=== PATIENT | male | born 1930 | race African-American/Black ===

== ENCOUNTER 2018-09-12 14:07 | Inpatient (IN) | payer OTHER ==
[~2018-09-12] VITALS: Ht 170.2 cm; Wt 98.1 kg
[~2018-09-12 14:07] MED LIST: ACET325T9 PO; ALBU1.25 NEB; ALBU2.5V14 IH; ALBU2.5V5 NEB; AMOX1TAB10 PO; ASPI-482 PO; ASPI325T8 PO; ATOR10TA60 PO; ATOR40TA PO; CARB15DR3 EACHEYE; CHOL10003 PO; CIPR500T94 PO; CLOT12CR2 TP; DORZ10DR21 OP; ESCITALOPRAM OX10 MG PO; ESOM40CA PO; FENO145T PO; FERR325T14 PO; FLUT16SP2 NS; FURO20TA3 PO; GABA300C18 PO; HYDR-209 PO; HYDR-2145 PO; HYDR-2679 PO; HYDR-2761 PO; INSU100I13 SQ; INSU100I17 SQ; INSU100V8 SQ; ISOS60TA PO; LEVE250T30 PO; LISI-338 PO; LORA10CA PO; LORA10TA68 PO; MAGN2400 PO; MEMA10TA PO; METO-239 PO; METO100T7 PO; MONT10TA9 PO; MULT-612 PO; MV-M1TAB8 PO; POLY17PO29 PO; POTA8TAB6 PO; PROM118S5 PO; PROM6.257 PO; PYRI100T PO; RANI150T2 PO; RANITIDINE; REPA1TAB PO; REPA1TAB6 PO; SIMV40TA3 PO; SODI30SP NS; SOLI5TAB2 PO; TAMS0.4C2 PO; TAMS0.4C97 PO; TRAM50TA PO; TRAV5DRO EACHEYE; TRAV5DRO OP; VENTOLIN HFA INH; VENTOLIN HFA18 GM INH; VITA1CAP PO
[2018-09-12 15:29] LABS: BASO % 1 % (0-3); EOS % 0 % (0-3); HEMATOCRIT 29.7 % (39.0-53.0); HEMOGLOBIN 9.1 g/dL (13.0-17.5); LYMPH # 1.2 x10^3/uL (1.0-4.8); LYMPH % 13 % (24-48); MEAN CORPUSCULAR HEMOGLOBIN 23 pg (25-35); MEAN CORPUSCULAR HGB CONC 31 g/dL (31-37); MEAN CORPUSCULAR VOLUME 76 fL (79-100); MONO % 11 % (0-9); NEUT % 75 % (31-73); PLATELET COUNT 249 x10^3/uL (140-400); RED BLOOD COUNT 3.93 x10^6/uL (4.30-5.70); WHITE BLOOD COUNT 9.3 x10^3/uL (4.0-11.0)
--- NOTE | 2018-09-12 15:56 | RAD ---
PQRS Compliance statement: One or more of the following individualized dose reduction techniques were utilized for this examination: 1. Automated exposure control. 2. Adjustment of the mA and/or kV according to patient size. 3. Use of iterative reconstruction technique. Indication:AMS FALL 1 WK AGO PREV SENT ER EXT 4180 TECHNIQUE: CT head without IV contrast COMPARISON:08/13/2018 FINDINGS: No pathologic intra-axial or extra-axial fluid collection. Mild diffuse cerebral atrophy with ex vacuo dilation of the ventricles. The basal cisterns are within normal limits. Redemonstrated is a extra-axial mass in the left high convexity approximately measuring 4.0 x 2.9 cm with internal calcifications also evaluated with MRI from 09/02/2014 most likely a meningioma. No acute intracranial bleed. Confluent low-attenuation is seen in the periventricular and deep white matter. No focal loss of ramos-white differentiation. The orbits are within normal limits. No large scalp hematoma. No suspicious calvarial lesion or acute calvarial fractures. Complete opacification of the right sphenoid sinus. Rest of the paranasal sinuses and mastoid air cells are clear. Chronic fracture of the left zygomatic arch and lateral wall of the left orbit. IMPRESSION: 1. No acute intracranial bleed. 2. Left cerebral high convexity extra-axial mass also seen on the previous studies compatible with meningioma. 3. Moderate White matter changes most likely secondary to chronic microvascular ischemic disease. If concern for acute ischemic stroke is high, please consider MRI brain. 4. Chronic fractures of the lateral wall of the left orbit and zygomatic arch. Electronically signed by: Jerman Obrien DO (09/12/2018 3:53 PM) [id number]
--- NOTE | 2018-09-12 15:56 | RAD ---
Portable chest, 09/12/2018: HISTORY: Altered mental status Comparison is made to a study from 08/19/2018. The heart size and pulmonary vascularity are normal. There is mild tortuosity of the thoracic aorta. No pulmonary infiltrate is seen. There is no evidence of pleural fluid. IMPRESSION: No acute cardiopulmonary abnormality is detected. Electronically signed by: Benito Kim MD (09/12/2018 3:53 PM) [facility]
--- NOTE | 2018-09-12 16:01 | PHYS DOC ---
Past Medical History Past Medical History: Anemia, Asthma, CHF, Diabetes-Type I, GERD, Glaucoma, High Cholesterol, Heart Disease, Hypertension, Prostatitis, Seizure, Other Additional Past Medical Histor: back pain, edema, DDD, neuropathy, headache, hearing loss, seasonal allergi Past Surgical History: Other Additional Past Surgical Histo: unknown Alcohol Use: None Drug Use: None Adult General Chief Complaint Chief Complaint: OTHER COMPLAINTS HPI HPI Patient is a 87 year old male who presents with persistent by Dr. Torres due to home health nurse calling and stating that the patient is more disoriented and weak. Patient comes from home. He was diagnosed with a urinary tract infection and was given Bactrim on Saturday. The patient examined to see if the patient's urinary tract infection was clearing or worsening. Dr. Torres. Had called and talked to JOSE Tracy stating to also consult infectious disease on the patient. Dr Torres is wanting the patient to be admitted for UTI and AMS. Review of Systems Review of Systems Constitutional: Denies fever or chills [] Eyes: Denies change in visual acuity, redness, or eye pain [] HENT: Denies nasal congestion or sore throat [] Respiratory: Denies cough or shortness of breath [] Cardiovascular: No additional information not addressed in HPI [] GI: Denies abdominal pain, nausea, vomiting, bloody stools or diarrhea [] :Urinary frequency. Denies dysuria or hematuria [] Musculoskeletal: Denies back pain or joint pain [] Integument: Denies rash or skin lesions [] Neurologic: Denies headache, focal weakness or sensory changes [] All other systems were reviewed and found to be within normal limits, except as documented in this note. Current Medications Current Medications Current Medications Medications (Trade) Dose Ordered Sig/[facility] Start Time Stop Time Status Last Admin Dose Admin Calcium Gluconate (Calcium Gluconate) 1,000 mg 1X ONCE 09/12/18 17:30 09/12/18 17:31 DC Dextrose (Dextrose 50%-Water Syringe) 25 gm 1X ONCE 09/12/18 17:30 09/12/18 17:31 DC Insulin Human Regular (HumuLIN R VIAL) 10 unit 1X ONCE 09/12/18 17:30 09/12/18 17:31 DC Allergies Allergies Allergies Coded Allergies Type Severity Reaction Last Updated Verified No Known Drug Allergies 8/31/15 No Physical Exam Physical Exam Constitutional: Well developed, well nourished, no acute distress, non-toxic appearance. [] HENT: Normocephalic, atraumatic, bilateral external ears normal, oropharynx moist, no oral exudates, nose normal. [] Eyes: PERRLA, EOMI, conjunctiva normal, no discharge. [] Neck: Normal range of motion, no tenderness, supple, no stridor. [] Cardiovascular:Heart rate regular rhythm, no murmur [] Lungs & Thorax: Bilateral breath sounds clear to auscultation [] Abdomen: Bowel sounds normal, soft, no tenderness, no masses, no pulsatile masses. [] Skin: Warm, dry, no erythema, no rash. [] Back: No tenderness, no CVA tenderness. [] Extremities: No tenderness, no cyanosis, no clubbing, ROM intact, no edema. [] Neurologic: Alert and oriented X 2, normal motor function, normal sensory function, no focal deficits noted. [] Psychologic: Affect normal, judgement normal, mood normal. [] Current Patient Data Vital Signs Vital Signs Date Time Temp Pulse Resp B/P (MAP) Pulse Ox O2 Delivery O2 Flow Rate FiO2 09/12/18 14:55 79 18 137/69 (91) 96 Room Air 09/12/18 14:07 98.1 98.1 Lab Values Laboratory Tests Test 09/12/18 14:45 09/12/18 16:09 09/12/18 16:12 09/12/18 16:26 White Blood Count 9.3 x10^3/uL (4.0-11.0) Red Blood Count 3.93 x10^6/uL (4.30-5.70) L Hemoglobin 9.1 g/dL (13.0-17.5) L Hematocrit 29.7 % (39.0-53.0) L Mean Corpuscular Volume 76 fL (79-100) L Mean Corpuscular Hemoglobin 23 pg (25-35) L Mean Corpuscular Hemoglobin Concent 31 g/dL (31-37) Red Cell Distribution Width 15.0 % (11.5-14.5) H Platelet Count 249 x10^3/uL (140-400) Neutrophils (%) (Auto) 75 % (31-73) H Lymphocytes (%) (Auto) 13 % (24-48) L Monocytes (%) (Auto) 11 % (0-9) H Eosinophils (%) (Auto) 0 % (0-3) Basophils (%) (Auto) 1 % (0-3) Neutrophils # (Auto) 7.0 x10^3uL (1.8-7.7) Lymphocytes # (Auto) 1.2 x10^3/uL (1.0-4.8) Monocytes # (Auto) 1.0 x10^3/uL (0.0-1.1) Eosinophils # (Auto) 0.0 x10^3/uL (0.0-0.7) Basophils # (Auto) 0.0 x10^3/uL (0.0-0.2) Troponin I Quantitative < 0.017 ng/mL (0.000-0.055) Urine Collection Type Unknown Urine Color Yellow Urine Clarity Clear Urine pH 7.5 Urine Specific [place] 1.010 Urine Protein Negative mg/dL (NEG-TRACE) Urine Glucose (UA) Negative mg/dL (NEG) Urine Ketones (Stick) Negative mg/dL (NEG) Urine Blood Moderate (NEG) Urine Nitrite Negative (NEG) Urine Bilirubin Negative (NEG) Urine Urobilinogen Dipstick 0.2 mg/dL (0.2 mg/dL) Urine Leukocyte Esterase Negative (NEG) Urine RBC 20-40 /HPF (0-2) Urine WBC 1-4 /HPF (0-4) Urine Bacteria 0 /HPF (0-FEW) Lactic Acid Level 1.4 mmol/L (0.4-2.0) Sodium Level 140 mmol/L (136-145) Potassium Level 5.4 mmol/L (3.5-5.1) H Chloride Level 105 mmol/L (98-107) Carbon Dioxide Level 28 mmol/L (21-32) Anion Gap 7 (6-14) Blood Urea Nitrogen 37 mg/dL (8-26) H Creatinine 2.7 mg/dL (0.7-1.3) H Estimated GFR (Cockcroft-Gault) 27.1 BUN/Creatinine Ratio 14 (6-20) Glucose Level 92 mg/dL (70-99) Calcium Level 9.0 mg/dL (8.5-10.1) Total Bilirubin 0.3 mg/dL (0.2-1.0) Aspartate Amino Transferase (AST) 58 U/L (15-37) H Alanine Aminotransferase (ALT) 32 U/L (16-63) Alkaline Phosphatase 76 U/L (46-116) Total Protein 6.8 g/dL (6.4-8.2) Albumin 3.0 g/dL (3.4-5.0) L Albumin/Globulin Ratio 0.8 (1.0-1.7) L Laboratory Tests 09/12/18 14:45 Laboratory Tests 09/12/18 16:26 EKG EKG Sinus rhythm and no STEMI.[] Interpretation Time: [address] Singh Radiology/Procedures Radiology/Procedures Chest xray, CT head Impressions: [address] [id number] IMAGING REPORT Signed PATIENT: ANDREZ HUMPHREY ACCOUNT: [id number] : 1930 LOCATION: ER AGE: 87 SEX: M EXAM STATUS: REG ER ORD. PHYSICIAN: SHANIA TYLER APRN REASON: AMS PROCEDURE: PORTABLE CHEST 1V Portable chest, 09/12/2018: HISTORY: Altered mental status Comparison is made to a study from 08/19/2018. The heart size and pulmonary vascularity are normal. There is mild tortuosity of the thoracic aorta. No pulmonary infiltrate is seen. There is no evidence of pleural fluid. IMPRESSION: No acute cardiopulmonary abnormality is detected. Electronically signed by: Benito Kim MD (09/12/2018 3:53 PM) [facility] DICTATED and SIGNED BY: BENITO KIM MD DATE: 09/12/[address] [address] IMAGING REPORT Signed PATIENT: ANDREZ HUMPHREY ACCOUNT: [id number] : 1930 LOCATION: ER AGE: 87 SEX: M EXAM STATUS: REG ER ORD. PHYSICIAN: SHANIA TYLER APRN REASON: AMS PROCEDURE: CT HEAD WO CONTRAST PQRS Compliance statement: One or more of the following individualized dose reduction techniques were utilized for this examination: 1. Automated exposure control. 2. Adjustment of the mA and/or kV according to patient size. 3. Use of iterative reconstruction technique. Indication:AMS FALL 1 WK AGO PREV SENT ER EXT 4180 TECHNIQUE: CT head without IV contrast COMPARISON:08/13/2018 FINDINGS: No pathologic intra-axial or extra-axial fluid collection. Mild diffuse cerebral atrophy with ex vacuo dilation of the ventricles. The basal cisterns are within normal limits. Redemonstrated is a extra-axial mass in the left high convexity approximately measuring 4.0 x 2.9 cm with internal calcifications also evaluated with MRI from 09/02/2014 most likely a meningioma. No acute intracranial bleed. Confluent low-attenuation is seen in the periventricular and deep white matter. No focal loss of ramos-white differentiation. The orbits are within normal limits. No large scalp hematoma. No suspicious calvarial lesion or acute calvarial fractures. Complete opacification of the right sphenoid sinus. Rest of the paranasal sinuses and mastoid air cells are clear. Chronic fracture of the left zygomatic arch and lateral wall of the left orbit. IMPRESSION: 1. No acute intracranial bleed. 2. Left cerebral high convexity extra-axial mass also seen on the previous studies compatible with meningioma. 3. Moderate White matter changes most likely secondary to chronic microvascular ischemic disease. If concern for acute ischemic stroke is high, please consider MRI brain. 4. Chronic fractures of the lateral wall of the left orbit and zygomatic arch. Electronically signed by: Jerman Obrien DO (09/12/2018 3:53 PM) [id number] DICTATED and SIGNED BY: JERMAN OBRIEN DO DATE: 09/12/18 1547 Course & Med Decision Making Course & Med Decision Making Patient is a 87 year old male who presents with persistent by Dr. Torres due to home health nurse calling and stating that the patient is more disoriented and weak. Patient comes from home. He was diagnosed with a urinary tract infection and was given Bactrim on Saturday. The patient examined to see if the patient's urinary tract infection was clearing or worsening. Dr. Torres. Had called and talked to JOSE Tracy stating to also consult infectious disease on the patient. Dr Torres is wanting the patient to be admitted for UTI and AMS. Patient is alert to self and place. Patient does not know what year it is. I do not know a baseline mental status for the patient. Patient states he is unsure of why he is in the hospital. Patient states he has frequent urination but denies pain with urination. Patient denies any pain and has no complaints. Lungs are clear to auscultation all lobes. Abdomen is soft and nontender. Vital signs are within normal limits and he is afebrile. Skin pink warm and dry. Mucous membranes are moist. Patient speaks in full clear sentences. CT head and Chest xray show chronic findings and no acute findings. Patient was straight catheter and 1500ml of Cristine colored urine was drained. Lam catheter is kept in placed and yellow urine has now began draining. Potassium 5.4, Creatinine 2.7, BUN 37. Patient is given Calcium gluconate, albuterol, insulin and dextrose to treat hyperkalemia. I have spoken to Dr Obrien who is partition notcher for Dr Torres for admission. She states to order a BMP for the morning and order Rocephin 1G daily. Dragon Disclaimer Dragon Disclaimer This electronic medical record was generated, in whole or in part, using a voice recognition dictation system. Departure Departure Impression: Primary Impression: Urinary tract infection Additional Impressions: Urinary retention Hyperkalemia Disposition: ADMITTED INPATIENT Admitting Physician: Agustín Obrien Condition: STABLE Referrals: UNKNOWN PCP NAME (PCP) Problem Qualifiers Primary Impression: Urinary tract infection Urinary tract infection type: site unspecified Hematuria presence: without hematuria Qualified Codes: N39.0 - Urinary tract infection, site not specified SHANIA TYLER APRN Sep 12, 2018 16:01
[2018-09-12 16:24] LABS: BILIRUBIN,URINE NEGATIVE (NEG); CLARITY,URINE CLEAR; COLOR,URINE YELLOW; NITRITE,URINE NEGATIVE (NEG); PH,URINE 7.5; PROTEIN,URINE NEGATIVE (NEG-TRACE); UROBILINOGEN,URINE 0.2 mg/dL (0.2 mg/dL)
[2018-09-12 16:27] LABS: BACTERIA,URINE 0 /HPF (0-FEW); RBC,URINE 20-40 /HPF (0-2)
[2018-09-12 16:45] LABS: CREATININE 2.7 mg/dL (0.7-1.3); GFR 27.1; POTASSIUM 5.4 mmol/L (3.5-5.1)
[2018-09-12 16:50] LABS: ALBUMIN/GLOBULIN RATIO 0.8 (1.0-1.7); TOTAL BILIRUBIN 0.3 mg/dL (0.2-1.0); TOTAL PROTEIN 6.8 g/dL (6.4-8.2)
[2018-09-12] MEDS ORDERED: INSULIN REGULAR 100 UNIT/ML 3ML VIAL. IV ONE (17:30)
[2018-09-12] MEDS ORDERED: CALCIUM GLUCONATE 1,000 MG/10 ML VIAL. IVP ONE (17:30)
[2018-09-12] MEDS ORDERED: DEXTROSE 50% 25 GM / 50ML DISP.SYRIN. IV ONE (17:30)
[2018-09-12] MEDS ORDERED: ALBUTEROL SULFATE 2.5 MG/3 ML NEBU. CONT NEB ONE (18:00)
[2018-09-12] MEDS ORDERED: ACETAMINOPHEN 325 MG TABLET. PO PRN ×2 (18:00→23:45)
[2018-09-12] MEDS ORDERED: ONDANSETRON PF 4 MG/2 ML VIAL. IV PRN (18:00)
[2018-09-12] MEDS: cefTRIAXone IV Push 1 GM VIAL. IVP SCH (18:48)
[2018-09-12 19:00] VITALS: BP 116/44
--- NOTE | 2018-09-12 20:30 | NUR ---
RN paged MD in regards to patients glucose of 45 and RN gave a one time dose of dextrose. Orders were received and implemented at that time. RN will continue to monitor.
[2018-09-12] MEDS ORDERED: DEXTROSE 50% 25 GM / 50ML DISP.SYRIN. IV STA (20:48)
[2018-09-12 23:00] VITALS: BP 120/55
[2018-09-12] MEDS ORDERED: traMADol 50 MG TABLET PO PRN (23:45)
[2018-09-13 03:00] VITALS: BP 114/58
[2018-09-13 05:21] LABS: BASO % 0 % (0-3); EOS # 0.1 x10^3/uL (0.0-0.7); EOS % 2 % (0-3); HEMATOCRIT 27.6 % (39.0-53.0); HEMOGLOBIN 8.3 g/dL (13.0-17.5); LYMPH # 2.1 x10^3/uL (1.0-4.8); LYMPH % 25 % (24-48); MEAN CORPUSCULAR HEMOGLOBIN 22 pg (25-35); MEAN CORPUSCULAR HGB CONC 30 g/dL (31-37); MEAN CORPUSCULAR VOLUME 75 fL (79-100); MONO # 1.1 x10^3/uL (0.0-1.1); MONO % 13 % (0-9); NEUT # 4.9 x10^3uL (1.8-7.7); NEUT % 60 % (31-73); PLATELET COUNT 204 x10^3/uL (140-400); WHITE BLOOD COUNT 8.3 x10^3/uL (4.0-11.0)
[2018-09-13 06:17] LABS: ALBUMIN 2.7 g/dL (3.4-5.0); ALBUMIN/GLOBULIN RATIO 0.8 (1.0-1.7); CALCIUM 9.3 mg/dL (8.5-10.1); CREATININE 2.7 mg/dL (0.7-1.3); GFR 27.1; POTASSIUM 4.9 mmol/L (3.5-5.1); TOTAL BILIRUBIN 0.3 mg/dL (0.2-1.0); TOTAL PROTEIN 6.3 g/dL (6.4-8.2)
[2018-09-13 07:00] VITALS: BP 121/74
[2018-09-13 07:00] LABS: CREATININE 2.6 mg/dL (0.7-1.3); GFR 28.3; POTASSIUM 5.1 mmol/L (3.5-5.1)
[2018-09-13] MEDS ORDERED: DEXTROSE 50% 25 GM / 50ML DISP.SYRIN. IV ONE ×2 (07:56→08:00)
--- NOTE | 2018-09-13 08:01 | NUR ---
Patient blood sugar 48, D50 1 amp IVP per protocol. Patient alert and states "feeling good", skin warm and dry, will recheck blood sugar per protocol.
[2018-09-13 08:09] LABS: ANISOCYTOSIS PRESENT; HYPOCHROMIA PRESENT; OVALOCYTES PRESENT; PLT ESTIMATE ADEQUATE (ADEQUATE); POIKILOCYTOSIS PRESENT; SCHISTOCYTES FEW
--- NOTE | 2018-09-13 08:21 | NUR ---
Patient eating breakfast, blood sugar increased to 163 5 minutes after D50 1 amp IV. Continue cares and monitor.
[2018-09-13] MEDS ORDERED: FLUTICASONE 50MCG/NASAL SPRAY 16GM BOTTLE. NS SCH (09:00)
[2018-09-13] MEDS ORDERED: POTASSIUM CHLORIDE 10 MEQ TABLET.ER. PO SCH ×2 (09:00)
[2018-09-13] MEDS ORDERED: COQ10 PO SCH (09:00)
[2018-09-13] MEDS ORDERED: MV MN PO SCH (09:00)
[2018-09-13] MEDS ORDERED: LISINOPRIL 5 MG TABLET. PO SCH (09:00)
[2018-09-13] MEDS ORDERED: METOPROLOL SUCC 24HR ER 50 MG TAB.ER.24H. PO SCH (09:00)
[2018-09-13] MEDS ORDERED: LUTEIN PO SCH (09:00)
[2018-09-13] MEDS ORDERED: AMOXICILLIN/K CLAV 500/125MG TABLET. PO SCH (09:00)
[2018-09-13] MEDS ORDERED: LYCOPENE PO SCH (09:00)
[2018-09-13] MEDS ORDERED: [UNRECOGNIZED DRUG - OTHER] PO SCH (09:00)
[2018-09-13] MEDS ORDERED: FUROSEMIDE 20 MG TABLET PO SCH (09:00)
[2018-09-13] MEDS: ALBUTEROL SULFATE 2.5 MG/3 ML NEBU. NEB SCH ×4 (09:05→20:17)
[2018-09-13] MEDS: POLYETHYLENE GLYCOL 3350 17 GM PACKET. PO SCH (09:55)
[2018-09-13] MEDS: MEMANTINE 5 MG TABLET. PO SCH ×2 (09:55→21:07)
[2018-09-13] MEDS: levETIRAcetam 250 MG TABLET PO SCH ×2 (09:55→21:07)
[2018-09-13] MEDS: POLYVINYL ALCOHOL 1.4% OPHTH SOLUTION 15ML BOTTLE. OU SCH ×4 (09:55→21:06)
[2018-09-13] MEDS: LACTOBACILLUS RHAMNOSUS GG 1 CAPSULE. PO SCH ×2 (09:56→21:07)
[2018-09-13] MEDS: ASPIRIN ENTERIC COATED 81 MG TABLET.DR. PO SCH (09:56)
[2018-09-13] MEDS: GABAPENTIN 300 MG CAPSULE. PO SCH (09:56)
[2018-09-13] MEDS: CHOLECALCIFEROL (VITAMIN D3) 1,000 UNIT TABLET PO SCH (09:56)
[2018-09-13] MEDS: FAMOTIDINE 20 MG TABLET. PO SCH (09:56)
[2018-09-13] MEDS: MULTIVITAMIN with MINERAL TABLET. PO SCH (09:56)
[2018-09-13] MEDS: VITAMIN B COMPLEX TABLET. PO SCH (09:56)
[2018-09-13] MEDS: ISOSORBIDE MONONITRATE ER 30 MG TAB.ER.24H PO SCH (09:57)
[2018-09-13] MEDS: cefTRIAXone IV Push 1 GM VIAL. IVP SCH (09:58)
[2018-09-13] MEDS: FLUTICASONE 50MCG/NASAL SPRAY 16GM BOTTLE. NS SCH ×2 (09:58→21:06)
[2018-09-13] MEDS: METOPROLOL SUCC 24HR ER 25 MG TAB.ER.24H. PO SCH (09:59)
[2018-09-13] MEDS: CITALOPRAM 20 MG TABLET. PO SCH (09:59)
[2018-09-13] MEDS: IV DEXTROSE 5% - 0.9 % NACL 1,000 ML IV SCH ×2 (10:55→21:08)
[2018-09-13 11:00] VITALS: BP 136/77
--- NOTE | 2018-09-13 11:36 | PDOC ---
Provider Note Provider Note Patient seen. History and Physical dictated. See dictation#[id number] CELIA RIOS MD Sep 13, 2018 11:36
--- NOTE | 2018-09-13 11:41 | PDOC2 ---
CONSULT Date of Consult Date of Consult DATE: 09/13/18 TIME: 11:34 Reason for Consult Reason for Consult: MARVIN Referring Physician Referring Physician: BLANCA Identification/Chief Complaint Chief Complaint CONFUSION AND ABNORMAL LABS Source Source: Chart review, Patient History of Present Illness Reason for Visit: THIS IS AN 87 YR OLD WITH ABNORMAL LABS AND CONFUSION. PT NOTED TO HAVE RECENT UTI FOR WHICH HE WAS TREATED WITH BACTRIM. ON ADMIT CR OF 2.6. HE HAS BASELINE CKD STAGE 3 WITH CR OF 1.6 DUE TO DM II AND HTN. HE WAS GIVEN INSULIN FOR HIS HIGH K AND NOW HAS SOME HYPOGLYCEMIA. ALSO HAS BPH AND URINARY RETENTION FOR WHICH HE HAS A TRIMBLE CATHETER. HEMODYNAMICALLY STABLE Past Medical History Past Medical History Anemia, Asthma, CHF, Diabetes-Type I, GERD, Glaucoma, High Cholesterol, Heart Disease, Hypertension, Prostatitis, Seizure,back pain, edema, DDD, neuropathy, headache, hearing loss, seasonal allergi Cardiovascular: HTN Renal/: Chronic renal insuff Endocrine: Diabetes Current Problem List Problem List Problems Medical Problems: (1) Hyperkalemia Status: Acute (2) Urinary retention Status: Acute (3) Urinary tract infection Status: Acute Current Medications Current Medications Current Medications Calcium Gluconate (Calcium Gluconate) 1,000 mg 1X ONCE IVP Last administered on 09/12/18at 17:48; Start 09/12/18 at 17:30; Stop 09/12/18 at 17:31; Status DC Dextrose (Dextrose 50%-Water Syringe) 25 gm 1X ONCE IV Last administered on at 17:48; Start 09/12/18 at 17:30; Stop 09/12/18 at 17:31; Status DC Insulin Human Regular (HumuLIN R VIAL) 10 unit 1X ONCE IV Last administered on 09/12/18at 17:50; Start 09/12/18 at 17:30; Stop 09/12/18 at 17:31; Status DC Albuterol Sulfate (Ventolin Neb Soln) 10 mg 1X ONCE CONT NEB Last administered on 09/12/18at 17:52; Start 09/12/18 at 18:00; Stop 09/12/18 at 18:01 ; Status DC Ondansetron HCl (Zofran) 4 mg PRN Q8HRS PRN IV NAUSEA/VOMITING; Start 09/12/18 at 18:00; Stop 09/13/18 at 17:59 Acetaminophen (Tylenol) 650 mg PRN Q4HRS PRN PO FEVER; Start 09/12/18 at 18:00 ; Stop 09/12/18 at 23:42; Status DC Ceftriaxone Sodium (Rocephin) 1 gm DAILY IVP Last administered on 09/13/18at 09: 58; Start 09/12/18 at 18:30 Dextrose (Dextrose 50%-Water Syringe) 25 gm 1X STAT IV Last administered on at 20:52; Start 09/12/18 at 20:48; Stop 09/12/18 at 20:51; Status DC Acetaminophen (Tylenol) 650 mg PRN Q6HRS PRN PO MILD PAIN / TEMP; Start at 23:45 Albuterol Sulfate (Ventolin Neb Soln) 2.5 mg RTQID NEB Last administered on at 09:05; Start 09/13/18 at 08:00 Amoxicillin/ Clavulanate Potassium (Augmentin 500/ 125mg) 1 tab BID PO ; Start 09/13/18 at 09:00; Stop 09/13/18 at 09:00; Status DC Aspirin (Ecotrin) 81 mg DAILY PO Last administered on 09/13/18at 09:56; Start at 09:00 Atorvastatin Calcium (Lipitor) 10 mg HS PO ; Start 09/13/18 at 21:00 Vitamin D (Vitamin D3) 500 unit DAILY PO Last administered on 09/13/18at 09:56; Start 09/13/18 at 09:00 Furosemide (Lasix) 20 mg DAILY PO Last administered on 09/13/18 09:56; Start 09/13/18 at 09:00 Gabapentin (Neurontin) 300 mg DAILY PO Last administered on 09/13/18at 09:56; Start 09/13/18 at 09:00 Metoprolol Succinate (Toprol Xl) 50 mg DAILY PO ; Start 09/13/18 at 09:00; Stop 09/13/18 at 09:00; Status DC Multivitamins (Thera M Plus) 1 tab DAILY PO Last administered on 09/13/18at 09: 56; Start 09/13/18 at 09:00 Tamsulosin HCl (Flomax) 0.4 mg HS PO ; Start 09/13/18 at 21:00 Tramadol HCl (Ultram) 50 mg PRN QID PRN PO MODERATE-SEVERE PAIN; Start at 23:45; Stop 09/13/18 at 00:40; Status DC Artificial Tears (Artificial Tears) 1 drop QID OU Last administered on 09:55; Start 09/13/18 at 09:00 Citalopram Hydrobromide (CeleXA) 20 mg DAILY PO Last administered on 09/13/18 09:59; Start 09/13/18 at 09:00 Isosorbide Mononitrate (Imdur) 60 mg DAILY PO Last administered on 09/13/18 09 :57; Start 09/13/18 at 09:00 Levetiracetam (Keppra) 250 mg BID PO Last administered on 09/13/18 09:55; Start 09/13/18 at 09:00 Lisinopril (Prinivil) 5 mg DAILY PO Last administered on 09/13/18 09:57; Start 09/13/18 at 09:00 Memantine (Namenda) 5 mg BID PO Last administered on 09/13/18 09:55; Start at 09:00 Montelukast Sodium (Singulair) 10 mg QHS PO ; Start 09/13/18 at 21:00 Non-Formulary Medication (Mv-Mn/Fa/Coq10/ Lycopene/Lutein (Theragran-M Premier 50+ Caplet)) 1 each DAILY PO ; Start 09/13/18 at 09:00; Status UNV Polyethylene Glycol (miraLAX PACKET) 17 gm DAILY PO Last administered on 09:55; Start 09/13/18 at 09:00 Potassium Chloride (Klor-Con) 10 meq BID PO ; Start 09/13/18 at 09:00; Stop at 09:00; Status DC Famotidine (Pepcid) 20 mg DAILY PO Last administered on 09/13/18 09:56; Start 09/13/18 at 09:00 Vitamin B Complex (Johnny B) 1 tab DAILY PO Last administered on 09/13/18 09:56 ; Start 09/13/18 at 09:00 Lactobacillus Rhamnosus (Culturelle) 1 cap BID PO Last administered on 2/16/ 19at 09:56; Start 09/13/18 at 09:00 Metoprolol Succinate (Toprol Xl) 25 mg DAILY PO Last administered on 09/13/18at 09:59; Start 09/13/18 at 09:00 Potassium Chloride (Klor-Con) 8 meq BID PO ; Start 09/13/18 at 09:00; Status UNV Fluticasone Propionate (Flonase) 2 spray DAILY NS ; Start 09/13/18 at 09:00; Stop 09/13/18 at 09:45; Status DC Dextrose (Dextrose 50%-Water Syringe) 25 gm STK-MED ONCE IV ; Start 09/13/18 at 07:56; Stop 09/13/18 at 07:57; Status DC Fluticasone Propionate (Flonase) 2 spray BID NS Last administered on 09/13/18at 09:58; Start 09/13/18 at 10:00 Dextrose/Sodium Chloride 1,000 ml @ 75 mls/hr [id number] IV Last administered on 09/13/18at 10:55; Start 09/13/18 at 10:30 Active Scripts Active Lantus Solostar (Insulin Glargine,Hum.rec.anlog) 100 Unit/1 Ml Insuln.pen 10 Unit SQ QHS Tramadol Hcl 50 Mg Tablet 50 Mg PO PRN QID PRN 7 Days Amox Tr-K Clv 500-125 Mg Tab (Amoxicillin/Potassium Clav) 1 Each Tablet 1 Tab PO BID 7 Days Reported Refresh Optive Eye Drops (Carboxymethylcellulos/Glycerin) 15 Ml Drops 1 Drop EACHEYE BID Ranitidine Hcl 150 Mg Tablet 150 Mg PO BID Namenda (Memantine Hcl) 10 Mg Tablet 5 Mg PO BID Vitamin D3 (Cholecalciferol (Vitamin D3)) 1,000 Unit Tablet 500 Unit PO DAILY Vitamin B Complex 1 Each Capsule 1 Each PO DAILY Theragran-M Premier 50+ Caplet (Mv-Mn/Fa/Coq10/Lycopene/Lutein) 1 Each Tablet 1 Each PO DAILY Gnp Therapeutic-M Caplet (Multivit, Iron, Min No. 8, Fa) 1 Each Tablet 1 Each PO DAILY Furosemide 20 Mg Tablet 20 Mg PO DAILY Escitalopram Oxalate 10 Mg Tablet 10 Mg PO DAILY Atorvastatin Calcium 10 Mg Tablet 10 Mg PO HS Tylenol (Acetaminophen) 325 Mg Tablet 1 Tab PO PRN Q6HRS PRN MDD 3 gram Tamsulosin Hcl 0.4 Mg Cap.er.24h 1 Cap PO HS Metoprolol Succinate ( Xl ) (Metoprolol Succinate) 25 Mg Tab.er.24h 50 Mg PO DAILY Miralax (Polyethylene Glycol 3350) 17 Gm Powd.pack 1 Packet PO DAILY Albuterol Sulfate Neb Soln (Albuterol Sulfate) 2.5 Mg/3 Ml Vial.neb 2.5 Mg NEB QID Montelukast Sodium Tablet (Montelukast Sodium) 10 Mg Tablet 10 Mg PO HS Keppra (Levetiracetam) 250 Mg Tablet 250 Mg PO BID Aspir 81 (Aspirin) 81 Mg Tablet.dr 1 Tab PO DAILY Imdur (Isosorbide Mononitrate) 60 Mg Tab.er.24h 60 Mg PO DAILY Flonase (Fluticasone Propionate) 16 Gm Cornelius.susp 16 Gm NS BID Lisinopril 5 Mg Tablet 5 Mg PO DAILY Potassium Chloride 8 Meq Tablet.er 8 Meq PO BID Gabapentin (Gabapentin) 300 Mg Capsule 300 Mg PO BID Allergies Allergies: Coded Allergies: No Known Drug Allergies (Unverified , 03/28/15) ROS Review of System CONFUSED Physical Exam General: Alert, Cooperative, No acute distress HEENT: Atraumatic, PERRLA, EOMI, Mucous membr. moist/pink Lungs: Clear to auscultation Heart: Regular rate, Normal S1, Normal S2 Abdomen: Normal bowel sounds, Soft Extremities: No clubbing Skin: No breakdown Neuro: Other (CONFUSED) Psych/Mental Status: Other (FLAT AFFECT) MUSCULOSKELETAL: No deformity, No swelling Vitals VITALS Vital Signs Date Time Temp Pulse Resp B/P (MAP) Pulse Ox O2 Delivery O2 Flow Rate FiO2 09/13/18 11:00 98.7 84 18 136/77 (96) 95 Nasal Cannula 2.0 98.7 Labs Labs Laboratory Tests Test 09/12/18 14:45 09/12/18 16:09 09/12/18 16:12 09/12/18 16:26 White Blood Count 9.3 x10^3/uL (4.0-11.0) Red Blood Count 3.93 x10^6/uL (4.30-5.70) Hemoglobin 9.1 g/dL (13.0-17.5) Hematocrit 29.7 % (39.0-53.0) Mean Corpuscular Volume 76 fL (79-100) Mean Corpuscular Hemoglobin 23 pg (25-35) Mean Corpuscular Hemoglobin Concent 31 g/dL (31-37) Red Cell Distribution Width 15.0 % (11.5-14.5) Platelet Count 249 x10^3/uL (140-400) Neutrophils (%) (Auto) 75 % (31-73) Lymphocytes (%) (Auto) 13 % (24-48) Monocytes (%) (Auto) 11 % (0-9) Eosinophils (%) (Auto) 0 % (0-3) Basophils (%) (Auto) 1 % (0-3) Neutrophils # (Auto) 7.0 x10^3uL (1.8-7.7) Lymphocytes # (Auto) 1.2 x10^3/uL (1.0-4.8) Monocytes # (Auto) 1.0 x10^3/uL (0.0-1.1) Eosinophils # (Auto) 0.0 x10^3/uL (0.0-0.7) Basophils # (Auto) 0.0 x10^3/uL (0.0-0.2) Troponin I Quantitative < 0.017 ng/mL (0.000-0.055) Urine Collection Type Unknown Urine Color Yellow Urine Clarity Clear Urine pH 7.5 Urine Specific [place] 1.010 Urine Protein Negative mg/dL (NEG-TRACE) Urine Glucose (UA) Negative mg/dL (NEG) Urine Ketones (Stick) Negative mg/dL (NEG) Urine Blood Moderate (NEG) Urine Nitrite Negative (NEG) Urine Bilirubin Negative (NEG) Urine Urobilinogen Dipstick 0.2 mg/dL (0.2 mg/dL) Urine Leukocyte Esterase Negative (NEG) Urine RBC 20-40 /HPF (0-2) Urine WBC 1-4 /HPF (0-4) Urine Bacteria 0 /HPF (0-FEW) Lactic Acid Level 1.4 mmol/L (0.4-2.0) Sodium Level 140 mmol/L (136-145) Potassium Level 5.4 mmol/L (3.5-5.1) Chloride Level 105 mmol/L (98-107) Carbon Dioxide Level 28 mmol/L (21-32) Anion Gap 7 (6-14) Blood Urea Nitrogen 37 mg/dL (8-26) Creatinine 2.7 mg/dL (0.7-1.3) Estimated GFR (Cockcroft-Gault) 27.1 BUN/Creatinine Ratio 14 (6-20) Glucose Level 92 mg/dL (70-99) Calcium Level 9.0 mg/dL (8.5-10.1) Total Bilirubin 0.3 mg/dL (0.2-1.0) Aspartate Amino Transf (AST/SGOT) 58 U/L (15-37) Alanine Aminotransferase (ALT/SGPT) 32 U/L (16-63) Alkaline Phosphatase 76 U/L (46-116) Total Protein 6.8 g/dL (6.4-8.2) Albumin 3.0 g/dL (3.4-5.0) Albumin/Globulin Ratio 0.8 (1.0-1.7) Test 09/12/18 20:42 09/12/18 21:06 09/12/18 23:16 09/13/18 05:00 Glucose (Fingerstick) 45 mg/dL (70-99) 176 mg/dL (70-99) 185 mg/dL (70-99) White Blood Count 8.3 x10^3/uL (4.0-11.0) Red Blood Count 3.70 x10^6/uL (4.30-5.70) Hemoglobin 8.3 g/dL (13.0-17.5) Hematocrit 27.6 % (39.0-53.0) Mean Corpuscular Volume 75 fL (79-100) Mean Corpuscular Hemoglobin 22 pg (25-35) Mean Corpuscular Hemoglobin Concent 30 g/dL (31-37) Red Cell Distribution Width 15.0 % (11.5-14.5) Platelet Count 204 x10^3/uL (140-400) Neutrophils (%) (Auto) 60 % (31-73) Lymphocytes (%) (Auto) 25 % (24-48) Monocytes (%) (Auto) 13 % (0-9) Eosinophils (%) (Auto) 2 % (0-3) Basophils (%) (Auto) 0 % (0-3) Neutrophils # (Auto) 4.9 x10^3uL (1.8-7.7) Lymphocytes # (Auto) 2.1 x10^3/uL (1.0-4.8) Monocytes # (Auto) 1.1 x10^3/uL (0.0-1.1) Eosinophils # (Auto) 0.1 x10^3/uL (0.0-0.7) Basophils # (Auto) 0.0 x10^3/uL (0.0-0.2) Platelet Estimate Adequate (ADEQUATE) Hypochromasia Present Poikilocytosis Present Anisocytosis Present Ovalocytes Present Schistocytes Few Sodium Level 143 mmol/L (136-145) Potassium Level 4.9 mmol/L (3.5-5.1) Chloride Level 107 mmol/L (98-107) Carbon Dioxide Level 26 mmol/L (21-32) Anion Gap 10 (6-14) Blood Urea Nitrogen 36 mg/dL (8-26) Creatinine 2.7 mg/dL (0.7-1.3) Estimated GFR (Cockcroft-Gault) 27.1 BUN/Creatinine Ratio 13 (6-20) Glucose Level 108 mg/dL (70-99) Calcium Level 9.3 mg/dL (8.5-10.1) Total Bilirubin 0.3 mg/dL (0.2-1.0) Aspartate Amino Transf (AST/SGOT) 48 U/L (15-37) Alanine Aminotransferase (ALT/SGPT) 27 U/L (16-63) Alkaline Phosphatase 67 U/L (46-116) Total Protein 6.3 g/dL (6.4-8.2) Albumin 2.7 g/dL (3.4-5.0) Albumin/Globulin Ratio 0.8 (1.0-1.7) Test 09/13/18 07:53 09/13/18 08:10 09/13/18 11:22 Glucose (Fingerstick) 48 mg/dL (70-99) 163 mg/dL (70-99) 202 mg/dL (70-99) Laboratory Tests Test 09/12/18 14:45 09/12/18 16:09 09/12/18 16:12 09/12/18 16:26 White Blood Count 9.3 x10^3/uL (4.0-11.0) Red Blood Count 3.93 x10^6/uL (4.30-5.70) Hemoglobin 9.1 g/dL (13.0-17.5) Hematocrit 29.7 % (39.0-53.0) Mean Corpuscular Volume 76 fL (79-100) Mean Corpuscular Hemoglobin 23 pg (25-35) Mean Corpuscular Hemoglobin Concent 31 g/dL (31-37) Red Cell Distribution Width 15.0 % (11.5-14.5) Platelet Count 249 x10^3/uL (140-400) Neutrophils (%) (Auto) 75 % (31-73) Lymphocytes (%) (Auto) 13 % (24-48) Monocytes (%) (Auto) 11 % (0-9) Eosinophils (%) (Auto) 0 % (0-3) Basophils (%) (Auto) 1 % (0-3) Neutrophils # (Auto) 7.0 x10^3uL (1.8-7.7) Lymphocytes # (Auto) 1.2 x10^3/uL (1.0-4.8) Monocytes # (Auto) 1.0 x10^3/uL (0.0-1.1) Eosinophils # (Auto) 0.0 x10^3/uL (0.0-0.7) Basophils # (Auto) 0.0 x10^3/uL (0.0-0.2) Troponin I Quantitative < 0.017 ng/mL (0.000-0.055) Urine Collection Type Unknown Urine Color Yellow Urine Clarity Clear Urine pH 7.5 Urine Specific [place] 1.010 Urine Protein Negative mg/dL (NEG-TRACE) Urine Glucose (UA) Negative mg/dL (NEG) Urine Ketones (Stick) Negative mg/dL (NEG) Urine Blood Moderate (NEG) Urine Nitrite Negative (NEG) Urine Bilirubin Negative (NEG) Urine Urobilinogen Dipstick 0.2 mg/dL (0.2 mg/dL) Urine Leukocyte Esterase Negative (NEG) Urine RBC 20-40 /HPF (0-2) Urine WBC 1-4 /HPF (0-4) Urine Bacteria 0 /HPF (0-FEW) Lactic Acid Level 1.4 mmol/L (0.4-2.0) Sodium Level 140 mmol/L (136-145) Potassium Level 5.4 mmol/L (3.5-5.1) Chloride Level 105 mmol/L (98-107) Carbon Dioxide Level 28 mmol/L (21-32) Anion Gap 7 (6-14) Blood Urea Nitrogen 37 mg/dL (8-26) Creatinine 2.7 mg/dL (0.7-1.3) Estimated GFR (Cockcroft-Gault) 27.1 BUN/Creatinine Ratio 14 (6-20) Glucose Level 92 mg/dL (70-99) Calcium Level 9.0 mg/dL (8.5-10.1) Total Bilirubin 0.3 mg/dL (0.2-1.0) Aspartate Amino Transf (AST/SGOT) 58 U/L (15-37) Alanine Aminotransferase (ALT/SGPT) 32 U/L (16-63) Alkaline Phosphatase 76 U/L (46-116) Total Protein 6.8 g/dL (6.4-8.2) Albumin 3.0 g/dL (3.4-5.0) Albumin/Globulin Ratio 0.8 (1.0-1.7) Test 09/12/18 20:42 09/12/18 21:06 09/12/18 23:16 09/13/18 05:00 Glucose (Fingerstick) 45 mg/dL (70-99) 176 mg/dL (70-99) 185 mg/dL (70-99) White Blood Count 8.3 x10^3/uL (4.0-11.0) Red Blood Count 3.70 x10^6/uL (4.30-5.70) Hemoglobin 8.3 g/dL (13.0-17.5) Hematocrit 27.6 % (39.0-53.0) Mean Corpuscular Volume 75 fL (79-100) Mean Corpuscular Hemoglobin 22 pg (25-35) Mean Corpuscular Hemoglobin Concent 30 g/dL (31-37) Red Cell Distribution Width 15.0 % (11.5-14.5) Platelet Count 204 x10^3/uL (140-400) Neutrophils (%) (Auto) 60 % (31-73) Lymphocytes (%) (Auto) 25 % (24-48) Monocytes (%) (Auto) 13 % (0-9) Eosinophils (%) (Auto) 2 % (0-3) Basophils (%) (Auto) 0 % (0-3) Neutrophils # (Auto) 4.9 x10^3uL (1.8-7.7) Lymphocytes # (Auto) 2.1 x10^3/uL (1.0-4.8) Monocytes # (Auto) 1.1 x10^3/uL (0.0-1.1) Eosinophils # (Auto) 0.1 x10^3/uL (0.0-0.7) Basophils # (Auto) 0.0 x10^3/uL (0.0-0.2) Platelet Estimate Adequate (ADEQUATE) Hypochromasia Present Poikilocytosis Present Anisocytosis Present Ovalocytes Present Schistocytes Few Sodium Level 143 mmol/L (136-145) Potassium Level 4.9 mmol/L (3.5-5.1) Chloride Level 107 mmol/L (98-107) Carbon Dioxide Level 26 mmol/L (21-32) Anion Gap 10 (6-14) Blood Urea Nitrogen 36 mg/dL (8-26) Creatinine 2.7 mg/dL (0.7-1.3) Estimated GFR (Cockcroft-Gault) 27.1 BUN/Creatinine Ratio 13 (6-20) Glucose Level 108 mg/dL (70-99) Calcium Level 9.3 mg/dL (8.5-10.1) Total Bilirubin 0.3 mg/dL (0.2-1.0) Aspartate Amino Transf (AST/SGOT) 48 U/L (15-37) Alanine Aminotransferase (ALT/SGPT) 27 U/L (16-63) Alkaline Phosphatase 67 U/L (46-116) Total Protein 6.3 g/dL (6.4-8.2) Albumin 2.7 g/dL (3.4-5.0) Albumin/Globulin Ratio 0.8 (1.0-1.7) Test 09/13/18 07:53 09/13/18 08:10 09/13/18 11:22 Glucose (Fingerstick) 48 mg/dL (70-99) 163 mg/dL (70-99) 202 mg/dL (70-99) Assessment/Plan Assessment/Plan IMP MARVIN-CR OF 2.6 CKD STAGE 3 WITH CR OF 1.6 MET ENCEPHALOPATHY DECONDITIONING RECENT BRONCHITIS HYPOGLYCEMIA URINARY RETENTION DM II HTN PLAN AVOID BACTRIM LOW FLOW IVF'S RENAL SONOGRAM MAINTAIN TRIMBLE D/C LISINOPRIL WILL FOLLOW YESSI NASH MD Sep 13, 2018 11:41
[2018-09-13 15:00] VITALS: BP 130/73
--- NOTE | 2018-09-13 17:02 | HP ---
ADMIT DATE: 07/12/2019 ADMITTING PHYSICIAN: Dr. Torres. HISTORY OF PRESENT ILLNESS: This is an 87-year-old -[place] male who was recently admitted to this institution about 3 weeks ago for treatment of UTI, was noted to have an abnormal urine culture at home by the home health staff. The patient also had some change in mental status and was weaker. The patient was started on Bactrim on Saturday, but because of his worsening condition, the patient was sent to the Emergency Room. In the Emergency Room, the patient was noted to have urinary retention of 1500 mL and potassium of 5.4 with creatinine of 2.7 and BUN of 37. Previously, the patient's creatinine was 3.7 on previous admission and after hydration, his creatinine had come down to 1.7 during the previous admission. Because of the renal insufficiency and hyperkalemia, the patient was given IV calcium and IV insulin. However, subsequently, the patient's blood sugar dropped to 45 at 8:42 p.m. last night and again to 48 this morning. Because of the change in mental status, UTI and hyperkalemia, the patient was admitted for further evaluation and management. SYSTEMS REVIEW: At present time, the patient denies any pain, dyspnea, cough, or congestion. He denies any abdominal pain, nausea, vomiting, diarrhea or leg pain. He is a poor historian and he is forgetful, unable to do full systems review. PAST MEDICAL HISTORY: The patient has had recurrent UTI, acute renal failure with chronic kidney disease, BPH, seizure disorder, diabetes mellitus, insulin-dependent; anemia, asthma, congestive heart failure, gastroesophageal reflux disease, and glaucoma. PAST SURGICAL HISTORY: The patient had surgery for hydrocele and possibly prostate surgery. ALLERGIES: None known any. MEDICATIONS: Reviewed and reconciled. Currently, no insulin is listed on his medication list and he only received 10 units of fast acting insulin in the ER. He was recently started on Bactrim. PERSONAL HISTORY: History of smoking many years back. He used to be in a [place] [facility]. No history of smoking now. No history of alcoholism or drug abuse. FAMILY HISTORY: Positive for diabetes. PHYSICAL EXAMINATION: VITAL SIGNS: Temperature 98.7, pulse 84 per minute, respirations 18 per minute, blood pressure 136/77 mmHg. GENERAL: The patient is alert, oriented, forgetful and not in acute distress. LUNGS: Decreased breath sounds at bases. CARDIOVASCULAR: S1, S2 regular. ABDOMEN: Soft, nontender, no guarding, no rigidity. Bowel sounds present. He has a Lam catheter in place. EYES: Pupils reacting to light. Conjunctivae pale. Sclerae white. HENT: Unremarkable. SKIN: Warm and dry. There is no cyanosis. EXTREMITIES: No edema. CENTRAL NERVOUS SYSTEM: The patient is forgetful, generalized weakness. LABORATORY FINDINGS: BUN was 37 yesterday and creatinine 2.7, glucose was 45, 176 and then 48, now it is 163. Today, BUN is 36, creatinine 2.7. Sodium 143, potassium 4.9, albumin 2.7, AST 48. Chest x-ray and head CT are negative for any acute abnormalities. Urinalysis is negative except for 1-4 wbc's. IMPRESSION: 1. 1. Acute urinary tract infection. Culture report from outside the hospital is not available. 2. 2. Acute renal failure with chronic kidney disease. 3. 3. Acute urinary retention. 4. 4. Hypertension. 5. 5. Diabetes mellitus 2 with hypoglycemia. 6. 6. Dementia. 7. 7. Asthma. 8. 8. History of congestive heart failure. 9. 9. Diabetes mellitus, dependent on insulin. 10. 10. Hyperlipidemia. 11. 11. Glaucoma. 12. 12. Benign prostatic hypertrophy. 13. 13. Urinary retention. The patient had 1500 mL of urinary retention on admission. PLAN: I will consult Dr. Rodriguez for Nephrology evaluation and management. The patient has been started on IV fluids. We will continue IV Rocephin for now. Monitor for memory loss. The patient also has acute metabolic encephalopathy that will continue to improve once his hypoglycemia and renal insufficiency is improving. The patient has been started on IV D5 normal saline. Continue Lam catheter. The patient is not receiving any insulin. I will continue Flomax, but hold Lasix at this time. I will also hold lisinopril for 1 day. Prognosis of this patient is poor. For details, please review the orders. CELIA RIOS MD DR: GUERO/clement JOB#: [id number] / [id number]
[2018-09-13] MEDS ORDERED: INSULIN LISPRO 300 UNITS/3 ML INSULN.PEN. SQ ONE (17:15)
--- NOTE | 2018-09-13 17:48 | NUR ---
Cyril blood sugar 286 prior to evening meal, Dr. Obrien notified. One time order for humalog insulin 5 units SQ. Patient verb. understanding medication. See nursing communication, order and emar. Continue cares and monitor.
[2018-09-13 19:00] VITALS: BP 122/52
[2018-09-13] MEDS ORDERED: TAMSULOSIN 0.4 MG CAP.ER.24H. PO SCH (21:00)
[2018-09-13] MEDS: MONTELUKAST SODIUM 10 MG TABLET. PO SCH (21:07)
[2018-09-13] MEDS: ATORVASTATIN CALCIUM 10 MG TABLET. PO SCH (21:07)
[2018-09-13] MEDS: HEPARIN for SUB-Q USE 5,000 UNIT/ML VIAL. SQ SCH (21:08)
[2018-09-13 23:05] VITALS: BP 142/61
[2018-09-14 03:06] VITALS: BP 138/61
[2018-09-14 05:07] LABS: BASO % 0 % (0-3); EOS # 0.2 x10^3/uL (0.0-0.7); EOS % 4 % (0-3); HEMATOCRIT 28.3 % (39.0-53.0); HEMOGLOBIN 8.6 g/dL (13.0-17.5); LYMPH # 1.6 x10^3/uL (1.0-4.8); LYMPH % 28 % (24-48); MEAN CORPUSCULAR HEMOGLOBIN 23 pg (25-35); MEAN CORPUSCULAR HGB CONC 30 g/dL (31-37); MEAN CORPUSCULAR VOLUME 76 fL (79-100); MONO # 0.9 x10^3/uL (0.0-1.1); MONO % 16 % (0-9); NEUT # 3.1 x10^3uL (1.8-7.7); NEUT % 53 % (31-73); PLATELET COUNT 198 x10^3/uL (140-400); RED BLOOD COUNT 3.74 x10^6/uL (4.30-5.70); RED CELL DISTRIBUTION WIDTH 14.7 % (11.5-14.5); WHITE BLOOD COUNT 5.9 x10^3/uL (4.0-11.0)
[2018-09-14 05:49] LABS: CALCIUM 9.3 mg/dL (8.5-10.1); CREATININE 2.2 mg/dL (0.7-1.3); GFR 34.3; POTASSIUM 5.2 mmol/L (3.5-5.1)
[2018-09-14 07:00] VITALS: BP 135/53
[2018-09-14] MEDS: ALBUTEROL SULFATE 2.5 MG/3 ML NEBU. NEB SCH ×4 (07:04→19:30)
[2018-09-14] MEDS: POLYETHYLENE GLYCOL 3350 17 GM PACKET. PO SCH (09:12)
[2018-09-14] MEDS: MEMANTINE 5 MG TABLET. PO SCH ×2 (09:13→21:01)
[2018-09-14] MEDS: FLUTICASONE 50MCG/NASAL SPRAY 16GM BOTTLE. NS SCH ×2 (09:13→21:01)
[2018-09-14] MEDS: POLYVINYL ALCOHOL 1.4% OPHTH SOLUTION 15ML BOTTLE. OU SCH ×4 (09:13→21:01)
[2018-09-14] MEDS: levETIRAcetam 250 MG TABLET PO SCH ×2 (09:14→21:01)
[2018-09-14] MEDS: CHOLECALCIFEROL (VITAMIN D3) 1,000 UNIT TABLET PO SCH (09:14)
[2018-09-14] MEDS: GABAPENTIN 300 MG CAPSULE. PO SCH (09:14)
[2018-09-14] MEDS: CITALOPRAM 20 MG TABLET. PO SCH (09:14)
[2018-09-14] MEDS: MULTIVITAMIN with MINERAL TABLET. PO SCH (09:14)
[2018-09-14] MEDS: FAMOTIDINE 20 MG TABLET. PO SCH (09:14)
[2018-09-14] MEDS: ASPIRIN ENTERIC COATED 81 MG TABLET.DR. PO SCH (09:14)
[2018-09-14] MEDS: METOPROLOL SUCC 24HR ER 25 MG TAB.ER.24H. PO SCH (09:15)
[2018-09-14] MEDS: ISOSORBIDE MONONITRATE ER 30 MG TAB.ER.24H PO SCH (09:15)
[2018-09-14] MEDS: VITAMIN B COMPLEX TABLET. PO SCH (09:15)
[2018-09-14] MEDS: cefTRIAXone IV Push 1 GM VIAL. IVP SCH (09:16)
[2018-09-14] MEDS: LACTOBACILLUS RHAMNOSUS GG 1 CAPSULE. PO SCH ×2 (09:16→21:02)
[2018-09-14] MEDS: HEPARIN for SUB-Q USE 5,000 UNIT/ML VIAL. SQ SCH ×2 (09:20→21:03)
--- NOTE | 2018-09-14 09:39 | PDOC ---
Renal-Progress Notes Subjective Notes Notes NONE History of Present Illness Hx of present illness STABLE Vitals Vitals Vital Signs Date Time Temp Pulse Resp B/P (MAP) Pulse Ox O2 Delivery O2 Flow Rate FiO2 09/14/18 09:15 77 135/53 09/14/18 07:04 93 Room Air 09/14/18 07:00 99.0 17 99.0 09/13/18 15:00 2.0 Weight Weight [ ] I.O. Intake and Output Intake and Output 09/14/18 07:00 Intake Total 2032 ml Output Total 1750 ml Balance 282 ml Intake Oral 700 ml IV Total 1332 ml Output Urine Total 1750 ml # Bowel Movements 1 Labs Labs Laboratory Tests Test 09/13/18 11:22 09/13/18 16:39 09/13/18 20:21 09/14/18 03:25 Glucose (Fingerstick) 202 mg/dL (70-99) 286 mg/dL (70-99) 273 mg/dL (70-99) White Blood Count 5.9 x10^3/uL (4.0-11.0) Red Blood Count 3.74 x10^6/uL (4.30-5.70) Hemoglobin 8.6 g/dL (13.0-17.5) Hematocrit 28.3 % (39.0-53.0) Mean Corpuscular Volume 76 fL (79-100) Mean Corpuscular Hemoglobin 23 pg (25-35) Mean Corpuscular Hemoglobin Concent 30 g/dL (31-37) Red Cell Distribution Width 14.7 % (11.5-14.5) Platelet Count 198 x10^3/uL (140-400) Neutrophils (%) (Auto) 53 % (31-73) Lymphocytes (%) (Auto) 28 % (24-48) Monocytes (%) (Auto) 16 % (0-9) Eosinophils (%) (Auto) 4 % (0-3) Basophils (%) (Auto) 0 % (0-3) Neutrophils # (Auto) 3.1 x10^3uL (1.8-7.7) Lymphocytes # (Auto) 1.6 x10^3/uL (1.0-4.8) Monocytes # (Auto) 0.9 x10^3/uL (0.0-1.1) Eosinophils # (Auto) 0.2 x10^3/uL (0.0-0.7) Basophils # (Auto) 0.0 x10^3/uL (0.0-0.2) Sodium Level 140 mmol/L (136-145) Potassium Level 5.2 mmol/L (3.5-5.1) Chloride Level 105 mmol/L (98-107) Carbon Dioxide Level 26 mmol/L (21-32) Anion Gap 9 (6-14) Blood Urea Nitrogen 28 mg/dL (8-26) Creatinine 2.2 mg/dL (0.7-1.3) Estimated GFR (Cockcroft-Gault) 34.3 Glucose Level 221 mg/dL (70-99) Calcium Level 9.3 mg/dL (8.5-10.1) Test 09/14/18 07:31 Glucose (Fingerstick) 216 mg/dL (70-99) Review of Systems Constitutional: yes: weakness, alert Ears/Nose/Throat: Yes: no symptom reported Eyes: Yes: no symptom reported Pulmonary: Yes no symptom reported Cardiovascular: Yes no symptom reported Genitourinary: Yes: retention Musculoskeletal: Yes: no symptom reported Skin: Yes no symptom reported Psychiatric/Neurological: Yes: no symptom reported Endocrine: Yes: no symptom reported Physical Exam General Appearance: no apparent distress Skin: warm Respiratory: decreased breath sounds Heart: S1S2 Abdomen: soft, bowel sounds present Genitourinary: bladder flat Extremities: pulses present Neurology: alert Assessment Assessment IMP MARVIN-CR OF 2.7 TO 2.2 MILD HYPERKALEMIA-K OF 5.2 CKD STAGE 3 WITH CR OF 1.6 MET ENCEPHALOPATHY DECONDITIONING RECENT BRONCHITIS HYPOGLYCEMIA URINARY RETENTION DM II HTN PLAN AVOID BACTRIM LOW FLOW IVF'S RENAL SONOGRAM MAINTAIN TRIMBLE OFFLISINOPRIL WILL FOLLOW YESSI NASH MD Sep 14, 2018 09:39
[2018-09-14 11:00] VITALS: BP 137/53
--- NOTE | 2018-09-14 11:17 | PDOC ---
IM PROGRESS NOTES- Subjective Subjective No complaints of pain or dyspnea. Patient is a very poor historian and is very confused. Objective Vitals Vital Signs Date Time Temp Pulse Resp B/P (MAP) Pulse Ox O2 Delivery O2 Flow Rate FiO2 09/14/18 10:45 Room Air 09/14/18 09:15 77 135/53 09/14/18 07:04 93 09/14/18 07:00 99.0 17 99.0 09/13/18 15:00 2.0 Input & Output Intake and Output 09/14/18 07:00 Intake Total 2032 ml Output Total 1750 ml Balance 282 ml Intake Oral 700 ml IV Total 1332 ml Output Urine Total 1750 ml # Bowel Movements 1 Physical Exam Physical Exam General appearance - alert,ill appearing, and in no distress Mental Status - alert, very confused Chest -decreased breath sounds at bases Heart - S1 and S2 normal Abdomen - soft, nontender, nondistended, no masses or organomegaly Neurological - alert and confused Musculoskeletal - no muscular tenderness noted Extremities - trace pedal edema Skin - warm and dry Labs Laboratory Tests Test 09/12/18 14:45 09/12/18 16:09 09/12/18 16:12 09/12/18 16:26 White Blood Count 9.3 x10^3/uL (4.0-11.0) Red Blood Count 3.93 x10^6/uL (4.30-5.70) Hemoglobin 9.1 g/dL (13.0-17.5) Hematocrit 29.7 % (39.0-53.0) Mean Corpuscular Volume 76 fL (79-100) Mean Corpuscular Hemoglobin 23 pg (25-35) Mean Corpuscular Hemoglobin Concent 31 g/dL (31-37) Red Cell Distribution Width 15.0 % (11.5-14.5) Platelet Count 249 x10^3/uL (140-400) Neutrophils (%) (Auto) 75 % (31-73) Lymphocytes (%) (Auto) 13 % (24-48) Monocytes (%) (Auto) 11 % (0-9) Eosinophils (%) (Auto) 0 % (0-3) Basophils (%) (Auto) 1 % (0-3) Neutrophils # (Auto) 7.0 x10^3uL (1.8-7.7) Lymphocytes # (Auto) 1.2 x10^3/uL (1.0-4.8) Monocytes # (Auto) 1.0 x10^3/uL (0.0-1.1) Eosinophils # (Auto) 0.0 x10^3/uL (0.0-0.7) Basophils # (Auto) 0.0 x10^3/uL (0.0-0.2) Troponin I Quantitative < 0.017 ng/mL (0.000-0.055) Urine Collection Type Unknown Urine Color Yellow Urine Clarity Clear Urine pH 7.5 Urine Specific [place] 1.010 Urine Protein Negative mg/dL (NEG-TRACE) Urine Glucose (UA) Negative mg/dL (NEG) Urine Ketones (Stick) Negative mg/dL (NEG) Urine Blood Moderate (NEG) Urine Nitrite Negative (NEG) Urine Bilirubin Negative (NEG) Urine Urobilinogen Dipstick 0.2 mg/dL (0.2 mg/dL) Urine Leukocyte Esterase Negative (NEG) Urine RBC 20-40 /HPF (0-2) Urine WBC 1-4 /HPF (0-4) Urine Bacteria 0 /HPF (0-FEW) Lactic Acid Level 1.4 mmol/L (0.4-2.0) Sodium Level 140 mmol/L (136-145) Potassium Level 5.4 mmol/L (3.5-5.1) Chloride Level 105 mmol/L (98-107) Carbon Dioxide Level 28 mmol/L (21-32) Anion Gap 7 (6-14) Blood Urea Nitrogen 37 mg/dL (8-26) Creatinine 2.7 mg/dL (0.7-1.3) Estimated GFR (Cockcroft-Gault) 27.1 BUN/Creatinine Ratio 14 (6-20) Glucose Level 92 mg/dL (70-99) Calcium Level 9.0 mg/dL (8.5-10.1) Total Bilirubin 0.3 mg/dL (0.2-1.0) Aspartate Amino Transf (AST/SGOT) 58 U/L (15-37) Alanine Aminotransferase (ALT/SGPT) 32 U/L (16-63) Alkaline Phosphatase 76 U/L (46-116) Total Protein 6.8 g/dL (6.4-8.2) Albumin 3.0 g/dL (3.4-5.0) Albumin/Globulin Ratio 0.8 (1.0-1.7) Test 09/12/18 20:42 09/12/18 21:06 09/12/18 23:16 09/13/18 05:00 Glucose (Fingerstick) 45 mg/dL (70-99) 176 mg/dL (70-99) 185 mg/dL (70-99) White Blood Count 8.3 x10^3/uL (4.0-11.0) Red Blood Count 3.70 x10^6/uL (4.30-5.70) Hemoglobin 8.3 g/dL (13.0-17.5) Hematocrit 27.6 % (39.0-53.0) Mean Corpuscular Volume 75 fL (79-100) Mean Corpuscular Hemoglobin 22 pg (25-35) Mean Corpuscular Hemoglobin Concent 30 g/dL (31-37) Red Cell Distribution Width 15.0 % (11.5-14.5) Platelet Count 204 x10^3/uL (140-400) Neutrophils (%) (Auto) 60 % (31-73) Lymphocytes (%) (Auto) 25 % (24-48) Monocytes (%) (Auto) 13 % (0-9) Eosinophils (%) (Auto) 2 % (0-3) Basophils (%) (Auto) 0 % (0-3) Neutrophils # (Auto) 4.9 x10^3uL (1.8-7.7) Lymphocytes # (Auto) 2.1 x10^3/uL (1.0-4.8) Monocytes # (Auto) 1.1 x10^3/uL (0.0-1.1) Eosinophils # (Auto) 0.1 x10^3/uL (0.0-0.7) Basophils # (Auto) 0.0 x10^3/uL (0.0-0.2) Platelet Estimate Adequate (ADEQUATE) Hypochromasia Present Poikilocytosis Present Anisocytosis Present Ovalocytes Present Schistocytes Few Sodium Level 143 mmol/L (136-145) Potassium Level 4.9 mmol/L (3.5-5.1) Chloride Level 107 mmol/L (98-107) Carbon Dioxide Level 26 mmol/L (21-32) Anion Gap 10 (6-14) Blood Urea Nitrogen 36 mg/dL (8-26) Creatinine 2.7 mg/dL (0.7-1.3) Estimated GFR (Cockcroft-Gault) 27.1 BUN/Creatinine Ratio 13 (6-20) Glucose Level 108 mg/dL (70-99) Calcium Level 9.3 mg/dL (8.5-10.1) Total Bilirubin 0.3 mg/dL (0.2-1.0) Aspartate Amino Transf (AST/SGOT) 48 U/L (15-37) Alanine Aminotransferase (ALT/SGPT) 27 U/L (16-63) Alkaline Phosphatase 67 U/L (46-116) Total Protein 6.3 g/dL (6.4-8.2) Albumin 2.7 g/dL (3.4-5.0) Albumin/Globulin Ratio 0.8 (1.0-1.7) Test 09/13/18 07:53 09/13/18 08:10 09/13/18 11:22 09/13/18 16:39 Glucose (Fingerstick) 48 mg/dL (70-99) 163 mg/dL (70-99) 202 mg/dL (70-99) 286 mg/dL (70-99) Test 09/13/18 20:21 09/14/18 03:25 09/14/18 07:31 Glucose (Fingerstick) 273 mg/dL (70-99) 216 mg/dL (70-99) White Blood Count 5.9 x10^3/uL (4.0-11.0) Red Blood Count 3.74 x10^6/uL (4.30-5.70) Hemoglobin 8.6 g/dL (13.0-17.5) Hematocrit 28.3 % (39.0-53.0) Mean Corpuscular Volume 76 fL (79-100) Mean Corpuscular Hemoglobin 23 pg (25-35) Mean Corpuscular Hemoglobin Concent 30 g/dL (31-37) Red Cell Distribution Width 14.7 % (11.5-14.5) Platelet Count 198 x10^3/uL (140-400) Neutrophils (%) (Auto) 53 % (31-73) Lymphocytes (%) (Auto) 28 % (24-48) Monocytes (%) (Auto) 16 % (0-9) Eosinophils (%) (Auto) 4 % (0-3) Basophils (%) (Auto) 0 % (0-3) Neutrophils # (Auto) 3.1 x10^3uL (1.8-7.7) Lymphocytes # (Auto) 1.6 x10^3/uL (1.0-4.8) Monocytes # (Auto) 0.9 x10^3/uL (0.0-1.1) Eosinophils # (Auto) 0.2 x10^3/uL (0.0-0.7) Basophils # (Auto) 0.0 x10^3/uL (0.0-0.2) Sodium Level 140 mmol/L (136-145) Potassium Level 5.2 mmol/L (3.5-5.1) Chloride Level 105 mmol/L (98-107) Carbon Dioxide Level 26 mmol/L (21-32) Anion Gap 9 (6-14) Blood Urea Nitrogen 28 mg/dL (8-26) Creatinine 2.2 mg/dL (0.7-1.3) Estimated GFR (Cockcroft-Gault) 34.3 Glucose Level 221 mg/dL (70-99) Calcium Level 9.3 mg/dL (8.5-10.1) Laboratory Tests Test 09/13/18 11:22 09/13/18 16:39 09/13/18 20:21 09/14/18 03:25 Glucose (Fingerstick) 202 mg/dL (70-99) 286 mg/dL (70-99) 273 mg/dL (70-99) White Blood Count 5.9 x10^3/uL (4.0-11.0) Red Blood Count 3.74 x10^6/uL (4.30-5.70) Hemoglobin 8.6 g/dL (13.0-17.5) Hematocrit 28.3 % (39.0-53.0) Mean Corpuscular Volume 76 fL (79-100) Mean Corpuscular Hemoglobin 23 pg (25-35) Mean Corpuscular Hemoglobin Concent 30 g/dL (31-37) Red Cell Distribution Width 14.7 % (11.5-14.5) Platelet Count 198 x10^3/uL (140-400) Neutrophils (%) (Auto) 53 % (31-73) Lymphocytes (%) (Auto) 28 % (24-48) Monocytes (%) (Auto) 16 % (0-9) Eosinophils (%) (Auto) 4 % (0-3) Basophils (%) (Auto) 0 % (0-3) Neutrophils # (Auto) 3.1 x10^3uL (1.8-7.7) Lymphocytes # (Auto) 1.6 x10^3/uL (1.0-4.8) Monocytes # (Auto) 0.9 x10^3/uL (0.0-1.1) Eosinophils # (Auto) 0.2 x10^3/uL (0.0-0.7) Basophils # (Auto) 0.0 x10^3/uL (0.0-0.2) Sodium Level 140 mmol/L (136-145) Potassium Level 5.2 mmol/L (3.5-5.1) Chloride Level 105 mmol/L (98-107) Carbon Dioxide Level 26 mmol/L (21-32) Anion Gap 9 (6-14) Blood Urea Nitrogen 28 mg/dL (8-26) Creatinine 2.2 mg/dL (0.7-1.3) Estimated GFR (Cockcroft-Gault) 34.3 Glucose Level 221 mg/dL (70-99) Calcium Level 9.3 mg/dL (8.5-10.1) Test 09/14/18 07:31 Glucose (Fingerstick) 216 mg/dL (70-99) Meds Current Medications Atorvastatin Calcium (Lipitor) 10 mg HS PO Last administered on 09/13/18at 21:07 ; Start 09/13/18 at 21:00 Heparin Sodium (Porcine) (Heparin Sodium) 5,000 unit Q12HR SQ Last administered on 09/14/18at 09:20; Start 09/13/18 at 21:00 Insulin Human Lispro (HumaLOG) 5 units 1X ONCE SQ Last administered on at 17:37; Start 09/13/18 at 17:15; Stop 09/13/18 at 17:25; Status DC Montelukast Sodium (Singulair) 10 mg QHS PO Last administered on 09/13/18at 21: 07; Start 09/13/18 at 21:00 Tamsulosin HCl (Flomax) 0.4 mg HS PO Last administered on 09/13/18at 21:09; Start 09/13/18 at 21:00 Assessment Assessment IMPRESSION: 1. 1. Acute urinary tract infection. Culture report from outside the hospital is not available. 2. 2. Acute renal failure with chronic kidney disease. 3. 3. Acute urinary retention. 4. 4. Hypertension. 5. 5. Diabetes mellitus 2 with hypoglycemia. 6. 6. Dementia. 7. 7. Asthma. 8. 8. History of congestive heart failure. 9. 9. Diabetes mellitus, dependent on insulin. 10. 10. Hyperlipidemia. 11. 11. Glaucoma. 12. 12. Benign prostatic hypertrophy. 13. 13. Urinary retention. The patient had 1500 mL of urinary retention on admission. PLAN: I will consult Dr. Rodriguez for Nephrology evaluation and management. The patient has been started on IV fluids. We will continue IV Rocephin for now. Monitor for memory loss. The patient also has acute metabolic encephalopathy that will continue to improve once his hypoglycemia and renal insufficiency is improving. The patient has been started on IV D5 normal saline. Continue Lam catheter. The patient is not receiving any insulin. I will continue Flomax, but hold Lasix at this time. I will also hold lisinopril for 1 day. Prognosis of this patient is poor. For details, please review the orders. Acute renal failure with chronic kidney disease improving . Creatinine is 2.2 and potassium is 5.2. Patient remains very confused. Urinary retention- continue Lam catheter and Flomax. Consult urologist. Plan Plan For more details regarding further plans, please refer to the orders. CELIA RIOS MD Sep 14, 2018 11:17
[2018-09-14] MEDS: INSULIN LISPRO 300 UNITS/3 ML INSULN.PEN. SQ SCH ×2 (12:00→17:07)
[2018-09-14] MEDS ORDERED: DEXTROSE 50% 25 GM / 50ML DISP.SYRIN. IV PRN (12:00)
[2018-09-14] MEDS ORDERED: INSULIN LISPRO 300 UNITS/3 ML INSULN.PEN. SQ ONE (12:00)
--- NOTE | 2018-09-14 12:11 | PDOC2 ---
UROLOGY CONSULT Date of Consult Date of Consult DATE: 09/14/18 TIME: 12:06 Reason for Consult Reason for Consult: BPH, urinary retention Source Source: Chart review History of Present Illness Reason for Visit: 87 yo male admitted for increasing confusion. Was started on treatment for UTI by PCP on 09/08/18. He continued to act confused and was admitted 09/12/18. Patient is a poor historian, is not reliably answering questions. Review of prior records reveals that he has been taking tamsulosin 0.4 mg at night as an outpatient. Patient reports no urinary bother but was found to have 1500 ml urine in bladder upon Lam placement this admission. Creatinine at admission 2.7, now 2.2. UA this admission with microscopy RBCs, no WBCs or bacteria. Past Medical History Cardiovascular: HTN Renal/: Chronic renal insuff Endocrine: Diabetes Family History Family History: Family History Unknown Social History No ALCOHOL: none Drugs: None Current Medications Current Medications Current Medications Atorvastatin Calcium (Lipitor) 10 mg HS PO Last administered on 09/13/18at 21:07 ; Start 09/13/18 at 21:00 Dextrose (Dextrose 50%-Water Syringe) 12.5 gm PRN Q15MIN PRN IV SEE COMMENTS; Start 09/14/18 at 12:00 Heparin Sodium (Porcine) (Heparin Sodium) 5,000 unit Q12HR SQ Last administered on 09/14/18at 09:20; Start 09/13/18 at 21:00 Insulin Human Lispro (HumaLOG) 0-5 UNITS TIDWMEALS SQ ; Start 09/14/18 at 12:00 Insulin Human Lispro (HumaLOG) 5 units 1X ONCE SQ Last administered on at 17:37; Start 09/13/18 at 17:15; Stop 09/13/18 at 17:25; Status DC Insulin Human Lispro (HumaLOG) 8 units 1X ONCE SQ Last administered on at 12:00; Start 09/14/18 at 12:00; Stop 09/14/18 at 12:01; Status DC Montelukast Sodium (Singulair) 10 mg QHS PO Last administered on 09/13/18at 21: 07; Start 09/13/18 at 21:00 Tamsulosin HCl (Flomax) 0.4 mg HS PO Last administered on 09/13/18at 21:09; Start 09/13/18 at 21:00 Allergies Allergies: Coded Allergies: No Known Drug Allergies (Unverified , 03/28/15) ROS Review Of Systems: Unable to obtain due to confusion. Physical Exam Physical Exam: General: Pleasant, no acute distress. Eyes: conjunctiva anicteric, eyes full range of motion ENT: moist oral mucosa, normal dentition Neck: Trachea midline, no masses Respiratory: unlabored breathing, not using accessory muscles, no crackles or wheezes Cardiovascular: Regular rate and rhythm, moderate peripheral edema in legs Abdomen: nontender, nondistended, no hepatosplenomegaly, no masses Skin: no rashes or skin lesions on visualized skin Psych: normal mood, affect. oriented to name. : prostate 60 grams, left side slightly firm. Vitals VITALS Vital Signs Date Time Temp Pulse Resp B/P (MAP) Pulse Ox O2 Delivery O2 Flow Rate FiO2 09/14/18 11:00 98.8 76 17 137/53 (81) 95 Room Air 98.8 09/13/18 15:00 2.0 Labs Labs Laboratory Tests Test 09/12/18 14:45 09/12/18 16:09 09/12/18 16:12 09/12/18 16:26 White Blood Count 9.3 x10^3/uL (4.0-11.0) Red Blood Count 3.93 x10^6/uL (4.30-5.70) Hemoglobin 9.1 g/dL (13.0-17.5) Hematocrit 29.7 % (39.0-53.0) Mean Corpuscular Volume 76 fL (79-100) Mean Corpuscular Hemoglobin 23 pg (25-35) Mean Corpuscular Hemoglobin Concent 31 g/dL (31-37) Red Cell Distribution Width 15.0 % (11.5-14.5) Platelet Count 249 x10^3/uL (140-400) Neutrophils (%) (Auto) 75 % (31-73) Lymphocytes (%) (Auto) 13 % (24-48) Monocytes (%) (Auto) 11 % (0-9) Eosinophils (%) (Auto) 0 % (0-3) Basophils (%) (Auto) 1 % (0-3) Neutrophils # (Auto) 7.0 x10^3uL (1.8-7.7) Lymphocytes # (Auto) 1.2 x10^3/uL (1.0-4.8) Monocytes # (Auto) 1.0 x10^3/uL (0.0-1.1) Eosinophils # (Auto) 0.0 x10^3/uL (0.0-0.7) Basophils # (Auto) 0.0 x10^3/uL (0.0-0.2) Troponin I Quantitative < 0.017 ng/mL (0.000-0.055) Urine Collection Type Unknown Urine Color Yellow Urine Clarity Clear Urine pH 7.5 Urine Specific [place] 1.010 Urine Protein Negative mg/dL (NEG-TRACE) Urine Glucose (UA) Negative mg/dL (NEG) Urine Ketones (Stick) Negative mg/dL (NEG) Urine Blood Moderate (NEG) Urine Nitrite Negative (NEG) Urine Bilirubin Negative (NEG) Urine Urobilinogen Dipstick 0.2 mg/dL (0.2 mg/dL) Urine Leukocyte Esterase Negative (NEG) Urine RBC 20-40 /HPF (0-2) Urine WBC 1-4 /HPF (0-4) Urine Bacteria 0 /HPF (0-FEW) Lactic Acid Level 1.4 mmol/L (0.4-2.0) Sodium Level 140 mmol/L (136-145) Potassium Level 5.4 mmol/L (3.5-5.1) Chloride Level 105 mmol/L (98-107) Carbon Dioxide Level 28 mmol/L (21-32) Anion Gap 7 (6-14) Blood Urea Nitrogen 37 mg/dL (8-26) Creatinine 2.7 mg/dL (0.7-1.3) Estimated GFR (Cockcroft-Gault) 27.1 BUN/Creatinine Ratio 14 (6-20) Glucose Level 92 mg/dL (70-99) Calcium Level 9.0 mg/dL (8.5-10.1) Total Bilirubin 0.3 mg/dL (0.2-1.0) Aspartate Amino Transf (AST/SGOT) 58 U/L (15-37) Alanine Aminotransferase (ALT/SGPT) 32 U/L (16-63) Alkaline Phosphatase 76 U/L (46-116) Total Protein 6.8 g/dL (6.4-8.2) Albumin 3.0 g/dL (3.4-5.0) Albumin/Globulin Ratio 0.8 (1.0-1.7) Test 09/12/18 20:42 09/12/18 21:06 09/12/18 23:16 09/13/18 05:00 Glucose (Fingerstick) 45 mg/dL (70-99) 176 mg/dL (70-99) 185 mg/dL (70-99) White Blood Count 8.3 x10^3/uL (4.0-11.0) Red Blood Count 3.70 x10^6/uL (4.30-5.70) Hemoglobin 8.3 g/dL (13.0-17.5) Hematocrit 27.6 % (39.0-53.0) Mean Corpuscular Volume 75 fL (79-100) Mean Corpuscular Hemoglobin 22 pg (25-35) Mean Corpuscular Hemoglobin Concent 30 g/dL (31-37) Red Cell Distribution Width 15.0 % (11.5-14.5) Platelet Count 204 x10^3/uL (140-400) Neutrophils (%) (Auto) 60 % (31-73) Lymphocytes (%) (Auto) 25 % (24-48) Monocytes (%) (Auto) 13 % (0-9) Eosinophils (%) (Auto) 2 % (0-3) Basophils (%) (Auto) 0 % (0-3) Neutrophils # (Auto) 4.9 x10^3uL (1.8-7.7) Lymphocytes # (Auto) 2.1 x10^3/uL (1.0-4.8) Monocytes # (Auto) 1.1 x10^3/uL (0.0-1.1) Eosinophils # (Auto) 0.1 x10^3/uL (0.0-0.7) Basophils # (Auto) 0.0 x10^3/uL (0.0-0.2) Platelet Estimate Adequate (ADEQUATE) Hypochromasia Present Poikilocytosis Present Anisocytosis Present Ovalocytes Present Schistocytes Few Sodium Level 143 mmol/L (136-145) Potassium Level 4.9 mmol/L (3.5-5.1) Chloride Level 107 mmol/L (98-107) Carbon Dioxide Level 26 mmol/L (21-32) Anion Gap 10 (6-14) Blood Urea Nitrogen 36 mg/dL (8-26) Creatinine 2.7 mg/dL (0.7-1.3) Estimated GFR (Cockcroft-Gault) 27.1 BUN/Creatinine Ratio 13 (6-20) Glucose Level 108 mg/dL (70-99) Calcium Level 9.3 mg/dL (8.5-10.1) Total Bilirubin 0.3 mg/dL (0.2-1.0) Aspartate Amino Transf (AST/SGOT) 48 U/L (15-37) Alanine Aminotransferase (ALT/SGPT) 27 U/L (16-63) Alkaline Phosphatase 67 U/L (46-116) Total Protein 6.3 g/dL (6.4-8.2) Albumin 2.7 g/dL (3.4-5.0) Albumin/Globulin Ratio 0.8 (1.0-1.7) Test 09/13/18 07:53 09/13/18 08:10 09/13/18 11:22 09/13/18 16:39 Glucose (Fingerstick) 48 mg/dL (70-99) 163 mg/dL (70-99) 202 mg/dL (70-99) 286 mg/dL (70-99) Test 09/13/18 20:21 09/14/18 03:25 09/14/18 07:31 09/14/18 11:42 Glucose (Fingerstick) 273 mg/dL (70-99) 216 mg/dL (70-99) 287 mg/dL (70-99) White Blood Count 5.9 x10^3/uL (4.0-11.0) Red Blood Count 3.74 x10^6/uL (4.30-5.70) Hemoglobin 8.6 g/dL (13.0-17.5) Hematocrit 28.3 % (39.0-53.0) Mean Corpuscular Volume 76 fL (79-100) Mean Corpuscular Hemoglobin 23 pg (25-35) Mean Corpuscular Hemoglobin Concent 30 g/dL (31-37) Red Cell Distribution Width 14.7 % (11.5-14.5) Platelet Count 198 x10^3/uL (140-400) Neutrophils (%) (Auto) 53 % (31-73) Lymphocytes (%) (Auto) 28 % (24-48) Monocytes (%) (Auto) 16 % (0-9) Eosinophils (%) (Auto) 4 % (0-3) Basophils (%) (Auto) 0 % (0-3) Neutrophils # (Auto) 3.1 x10^3uL (1.8-7.7) Lymphocytes # (Auto) 1.6 x10^3/uL (1.0-4.8) Monocytes # (Auto) 0.9 x10^3/uL (0.0-1.1) Eosinophils # (Auto) 0.2 x10^3/uL (0.0-0.7) Basophils # (Auto) 0.0 x10^3/uL (0.0-0.2) Sodium Level 140 mmol/L (136-145) Potassium Level 5.2 mmol/L (3.5-5.1) Chloride Level 105 mmol/L (98-107) Carbon Dioxide Level 26 mmol/L (21-32) Anion Gap 9 (6-14) Blood Urea Nitrogen 28 mg/dL (8-26) Creatinine 2.2 mg/dL (0.7-1.3) Estimated GFR (Cockcroft-Gault) 34.3 Glucose Level 221 mg/dL (70-99) Calcium Level 9.3 mg/dL (8.5-10.1) Laboratory Tests Test 09/13/18 16:39 09/13/18 20:21 09/14/18 03:25 09/14/18 07:31 Glucose (Fingerstick) 286 mg/dL (70-99) 273 mg/dL (70-99) 216 mg/dL (70-99) White Blood Count 5.9 x10^3/uL (4.0-11.0) Red Blood Count 3.74 x10^6/uL (4.30-5.70) Hemoglobin 8.6 g/dL (13.0-17.5) Hematocrit 28.3 % (39.0-53.0) Mean Corpuscular Volume 76 fL (79-100) Mean Corpuscular Hemoglobin 23 pg (25-35) Mean Corpuscular Hemoglobin Concent 30 g/dL (31-37) Red Cell Distribution Width 14.7 % (11.5-14.5) Platelet Count 198 x10^3/uL (140-400) Neutrophils (%) (Auto) 53 % (31-73) Lymphocytes (%) (Auto) 28 % (24-48) Monocytes (%) (Auto) 16 % (0-9) Eosinophils (%) (Auto) 4 % (0-3) Basophils (%) (Auto) 0 % (0-3) Neutrophils # (Auto) 3.1 x10^3uL (1.8-7.7) Lymphocytes # (Auto) 1.6 x10^3/uL (1.0-4.8) Monocytes # (Auto) 0.9 x10^3/uL (0.0-1.1) Eosinophils # (Auto) 0.2 x10^3/uL (0.0-0.7) Basophils # (Auto) 0.0 x10^3/uL (0.0-0.2) Sodium Level 140 mmol/L (136-145) Potassium Level 5.2 mmol/L (3.5-5.1) Chloride Level 105 mmol/L (98-107) Carbon Dioxide Level 26 mmol/L (21-32) Anion Gap 9 (6-14) Blood Urea Nitrogen 28 mg/dL (8-26) Creatinine 2.2 mg/dL (0.7-1.3) Estimated GFR (Cockcroft-Gault) 34.3 Glucose Level 221 mg/dL (70-99) Calcium Level 9.3 mg/dL (8.5-10.1) Test 09/14/18 11:42 Glucose (Fingerstick) 287 mg/dL (70-99) Assessment/Plan Assessment/Plan BPH: will increase flomax to BID - watch for hypotension / dizziness. start finasteride 5 mg, continue as outpatient. Urinary retention: voiding trial in a few days after creatinine has stabilized. We will follow, thanks for consult. HERMES WHITE MD Sep 14, 2018 12:11
--- NOTE | 2018-09-14 12:16 | NUR ---
Patient blood sugar [address] Obrien notified, see nursing communication, orders and emar. Patient verb. understanding POC.
[2018-09-14] MEDS: FINASTERIDE 5 MG TABLET. PO SCH (12:29)
[2018-09-14] MEDS: IV DEXTROSE 5% - 0.9 % NACL 1,000 ML IV SCH (14:16)
[2018-09-14 15:00] VITALS: BP 124/59
[2018-09-14 19:00] VITALS: BP 137/61
[2018-09-14] MEDS: TAMSULOSIN 0.4 MG CAP.ER.24H. PO SCH (21:01)
[2018-09-14] MEDS: ATORVASTATIN CALCIUM 10 MG TABLET. PO SCH (21:01)
[2018-09-14] MEDS: MONTELUKAST SODIUM 10 MG TABLET. PO SCH (21:01)
[2018-09-14 23:04] VITALS: BP 157/65
[2018-09-15 03:11] VITALS: BP 147/68
[2018-09-15] MEDS: IV DEXTROSE 5% - 0.9 % NACL 1,000 ML IV SCH (04:05)
[2018-09-15 06:34] LABS: BASO % 1 % (0-3); EOS # 0.2 x10^3/uL (0.0-0.7); EOS % 4 % (0-3); HEMATOCRIT 27.2 % (39.0-53.0); HEMOGLOBIN 8.2 g/dL (13.0-17.5); LYMPH # 1.9 x10^3/uL (1.0-4.8); LYMPH % 32 % (24-48); MEAN CORPUSCULAR HEMOGLOBIN 23 pg (25-35); MEAN CORPUSCULAR HGB CONC 30 g/dL (31-37); MEAN CORPUSCULAR VOLUME 75 fL (79-100); MONO # 0.9 x10^3/uL (0.0-1.1); MONO % 15 % (0-9); NEUT # 2.9 x10^3uL (1.8-7.7); NEUT % 49 % (31-73); PLATELET COUNT 192 x10^3/uL (140-400); RED BLOOD COUNT 3.62 x10^6/uL (4.30-5.70); RED CELL DISTRIBUTION WIDTH 14.5 % (11.5-14.5); WHITE BLOOD COUNT 5.9 x10^3/uL (4.0-11.0)
[2018-09-15 06:56] LABS: CALCIUM 9.2 mg/dL (8.5-10.1); CREATININE 1.8 mg/dL (0.7-1.3); GFR 43.2; POTASSIUM 4.7 mmol/L (3.5-5.1)
[2018-09-15 07:00] VITALS: BP 128/70
[2018-09-15] MEDS: ALBUTEROL SULFATE 2.5 MG/3 ML NEBU. NEB SCH ×4 (07:40→19:46)
--- NOTE | 2018-09-15 07:48 | RAD ---
Renal ultrasound, 09/14/2018: HISTORY: Acute renal insufficiency The right kidney measures 10.8 cm in length while the left kidney measures 9.6 cm. A 2.2 cm cyst is evident in the right kidney. The lower pole of the left kidney was poorly defined due to overlying bowel. There is mild bilateral renal cortical scarring. There is no evidence of hydronephrosis. The urinary bladder is collapsed and poorly defined due to the presence of a Lam catheter. IMPRESSION: 1. Small right renal cyst. 2. No evidence of renal obstruction. Electronically signed by: Benito Kim MD (09/15/2018 7:45 AM) [facility]
[2018-09-15] MEDS: POLYETHYLENE GLYCOL 3350 17 GM PACKET. PO SCH (09:00)
[2018-09-15] MEDS: TAMSULOSIN 0.4 MG CAP.ER.24H. PO SCH ×2 (09:32→21:01)
[2018-09-15] MEDS: FINASTERIDE 5 MG TABLET. PO SCH (09:32)
[2018-09-15] MEDS: MULTIVITAMIN with MINERAL TABLET. PO SCH (09:32)
[2018-09-15] MEDS: GABAPENTIN 300 MG CAPSULE. PO SCH (09:32)
[2018-09-15] MEDS: CHOLECALCIFEROL (VITAMIN D3) 1,000 UNIT TABLET PO SCH (09:32)
[2018-09-15] MEDS: VITAMIN B COMPLEX TABLET. PO SCH (09:33)
[2018-09-15] MEDS: CITALOPRAM 20 MG TABLET. PO SCH (09:33)
[2018-09-15] MEDS: ISOSORBIDE MONONITRATE ER 30 MG TAB.ER.24H PO SCH (09:33)
[2018-09-15] MEDS: ASPIRIN ENTERIC COATED 81 MG TABLET.DR. PO SCH (09:33)
[2018-09-15] MEDS: cefTRIAXone IV Push 1 GM VIAL. IVP SCH (09:34)
[2018-09-15] MEDS: MEMANTINE 5 MG TABLET. PO SCH ×2 (09:34→21:01)
[2018-09-15] MEDS: METOPROLOL SUCC 24HR ER 25 MG TAB.ER.24H. PO SCH (09:34)
[2018-09-15] MEDS: FAMOTIDINE 20 MG TABLET. PO SCH (09:34)
[2018-09-15] MEDS: levETIRAcetam 250 MG TABLET PO SCH ×2 (09:34→21:01)
[2018-09-15] MEDS: LACTOBACILLUS RHAMNOSUS GG 1 CAPSULE. PO SCH ×2 (09:34→21:01)
[2018-09-15] MEDS: POLYVINYL ALCOHOL 1.4% OPHTH SOLUTION 15ML BOTTLE. OU SCH ×4 (09:35→21:00)
[2018-09-15] MEDS: FLUTICASONE 50MCG/NASAL SPRAY 16GM BOTTLE. NS SCH ×2 (09:35→21:00)
[2018-09-15] MEDS: HEPARIN for SUB-Q USE 5,000 UNIT/ML VIAL. SQ SCH ×2 (09:37→21:04)
[2018-09-15] MEDS: INSULIN LISPRO 300 UNITS/3 ML INSULN.PEN. SQ SCH ×3 (09:38→17:16)
--- NOTE | 2018-09-15 09:42 | PDOC ---
PROGRESS NOTES Subjective Subjective feels better today Objective Objective Vital Signs Date Time Temp Pulse Resp B/P (MAP) Pulse Ox O2 Delivery O2 Flow Rate FiO2 09/15/18 07:41 96 Room Air 09/15/18 07:00 98.5 89 17 128/70 (89) 98.5 Intake and Output 09/15/18 07:00 Intake Total 3536 ml Output Total 1500 ml Balance 2036 ml Intake Oral 750 ml IV Total 2786 ml Output Urine Total 1500 ml # Voids 1 # Bowel Movements 3 Physical Exam Abdomen: Normal bowel sounds, Soft Heart: Regular rate, Normal S1, Normal S2 Extremities: No clubbing General: Alert, Cooperative, No acute distress HEENT: Atraumatic, PERRLA, EOMI, Mucous membr. moist/pink Lungs: Clear to auscultation MUSCULOSKELETAL: No deformity, No swelling Neuro: Other (CONFUSED) Psych/Mental Status: Other (FLAT AFFECT) Skin: No breakdown COMMENT Lam present Diagnosis Problem List Problems Medical Problems: (1) Hyperkalemia Status: Acute (2) Urinary retention Status: Acute (3) Urinary tract infection Status: Acute Assessment Assessment IMPRESSION: 1. Acute urinary tract infection. on Rocephin 2. Acute renal failure with chronic kidney disease. 3. Acute urinary retention. 4. Hypertension. 5. Diabetes mellitus 2 with hypoglycemia. 6. Dementia. 7. Asthma. 8. History of congestive heart failure. 9. Diabetes mellitus, dependent on insulin. 10. Hyperlipidemia. 11. Glaucoma. 12. Benign prostatic hypertrophy. 13. Urinary retention. The patient had 1500 mL of urinary retention on admission. PLAN: We will continue IV Rocephin for now. The patient also has acute metabolic encephalopathy improved to base line sono kidneys cyst 2 cm cr 1.8 to base line, d/c iv fluids Urinary retention- continue Lam catheter and Flomax. Consult urologist. psa 35 went up. Plan Plan of Care Problems Medical Problems: (1) Hyperkalemia Status: Acute (2) Urinary retention Status: Acute (3) Urinary tract infection Status: Acute Comment Review of Relevant I have reviewed the following items emily (where applicable) has been applied. Labs Laboratory Tests Test 09/14/18 11:42 09/14/18 16:21 09/14/18 20:20 09/15/18 05:27 Glucose (Fingerstick) 287 mg/dL (70-99) 156 mg/dL (70-99) 214 mg/dL (70-99) White Blood Count 5.9 x10^3/uL (4.0-11.0) Red Blood Count 3.62 x10^6/uL (4.30-5.70) Hemoglobin 8.2 g/dL (13.0-17.5) Hematocrit 27.2 % (39.0-53.0) Mean Corpuscular Volume 75 fL (79-100) Mean Corpuscular Hemoglobin 23 pg (25-35) Mean Corpuscular Hemoglobin Concent 30 g/dL (31-37) Red Cell Distribution Width 14.5 % (11.5-14.5) Platelet Count 192 x10^3/uL (140-400) Neutrophils (%) (Auto) 49 % (31-73) Lymphocytes (%) (Auto) 32 % (24-48) Monocytes (%) (Auto) 15 % (0-9) Eosinophils (%) (Auto) 4 % (0-3) Basophils (%) (Auto) 1 % (0-3) Neutrophils # (Auto) 2.9 x10^3uL (1.8-7.7) Lymphocytes # (Auto) 1.9 x10^3/uL (1.0-4.8) Monocytes # (Auto) 0.9 x10^3/uL (0.0-1.1) Eosinophils # (Auto) 0.2 x10^3/uL (0.0-0.7) Basophils # (Auto) 0.0 x10^3/uL (0.0-0.2) Sodium Level 140 mmol/L (136-145) Potassium Level 4.7 mmol/L (3.5-5.1) Chloride Level 106 mmol/L (98-107) Carbon Dioxide Level 23 mmol/L (21-32) Anion Gap 11 (6-14) Blood Urea Nitrogen 21 mg/dL (8-26) Creatinine 1.8 mg/dL (0.7-1.3) Estimated GFR (Cockcroft-Gault) 43.2 Glucose Level 258 mg/dL (70-99) Calcium Level 9.2 mg/dL (8.5-10.1) Prostate Specific Antigen 35.54 ng/mL (0.00-4.00) Test 09/15/18 07:46 Glucose (Fingerstick) 226 mg/dL (70-99) Medications Current Medications Dextrose (Dextrose 50%-Water Syringe) 12.5 gm PRN Q15MIN PRN IV SEE COMMENTS; Start 09/14/18 at 12:00 Finasteride (Proscar) 5 mg DAILY PO Last administered on 09/14/18at 12:29; Start 09/14/18 at 13:00 Insulin Human Lispro (HumaLOG) 0-5 UNITS TIDWMEALS SQ Last administered on 09/14at 17:07; Start 09/14/18 at 12:00 Insulin Human Lispro (HumaLOG) 8 units 1X ONCE SQ Last administered on at 12:00; Start 09/14/18 at 12:00; Stop 09/14/18 at 12:01; Status DC Tamsulosin HCl (Flomax) 0.4 mg BID PO Last administered on 09/14/18at 21:01; Start 09/14/18 at 21:00 Vitals/I & O Vital Sign - Last 24 Hours 09/14/18 09/14/18 09/14/18 09/14/18 10:45 11:00 15:00 15:06 Temp 98.8 99.0 98.8 99.0 Pulse 76 72 Resp 17 B/P (MAP) 137/53 (81) 124/59 (80) Pulse Ox 95 94 O2 Delivery Room Air Room Air Room Air Room Air 09/14/18 09/14/18 09/14/18 09/14/18 19:00 19:15 20:00 23:04 Temp 99.2 98.7 99.2 98.7 Pulse 77 76 Resp 20 20 B/P (MAP) 137/61 (86) 157/65 (95) Pulse Ox 95 96 95 O2 Delivery Room Air Room Air Room Air Room Air 09/15/18 09/15/18 09/15/18 03:11 07:00 07:41 Temp 98.7 98.5 98.7 98.5 Pulse 79 89 Resp 20 17 B/P (MAP) 147/68 (94) 128/70 (89) Pulse Ox 95 95 96 O2 Delivery Room Air Room Air Room Air Intake and Output 09/14/18 09/14/18 09/15/18 15:00 23:00 07:00 Intake Total 1500 ml 250 ml 1786 ml Output Total 100 ml 250 ml 1150 ml Balance 1400 ml 0 ml 636 ml GEOFFREY HART MD Sep 15, 2018 09:42
--- NOTE | 2018-09-15 09:50 | PDOC ---
BETH DEAN CASTING INSPECTOR 09/15/18 0950: SUBJECTIVE Subjective Pt states catheter is not bothering him. OK with keeping in a few more days OBJECTIVE Objective Physical Exam: General appearance: Alert. Some confusion, but cooperative Head: Normocephalic, without obvious abnormality Eyes: conjunctivae/corneas clear. PERRL, EOM's intact. Fundi benign Back: No CVA pain bilaterally Lungs: regular respirations, non labored breathing. Abdomen: soft, non-tender. No masses, no organomegaly Pelvic: Lam catheter in place draining clear yellow urine. Device in good working order. Vital Signs Vital Signs Date Time Temp Pulse Resp B/P (MAP) Pulse Ox O2 Delivery O2 Flow Rate FiO2 09/15/18 09:34 89 128/70 09/15/18 09:33 89 128/70 09/15/18 07:41 96 Room Air 09/15/18 07:00 98.5 89 17 128/70 (89) 95 Room Air 98.5 09/15/18 03:11 98.7 79 20 147/68 (94) 95 Room Air 98.7 09/14/18 23:04 98.7 76 20 157/65 (95) 95 Room Air 98.7 09/14/18 20:00 Room Air 09/14/18 19:15 96 Room Air 09/14/18 19:00 99.2 77 20 137/61 (86) 95 Room Air 99.2 09/14/18 15:06 Room Air 09/14/18 15:00 99.0 72 17 124/59 (80) 94 Room Air 99.0 09/14/18 11:00 98.8 76 17 137/53 (81) 95 Room Air 98.8 09/14/18 10:45 Room Air I & O Intake and Output 09/15/18 07:00 Intake Total 3536 ml Output Total 1500 ml Balance 2036 ml Intake Oral 750 ml IV Total 2786 ml Output Urine Total 1500 ml # Voids 1 # Bowel Movements 3 PHYSICAL EXAM Physical Exam Physical Exam: General appearance: Alert. Some confusion, but cooperative Head: Normocephalic, without obvious abnormality Eyes: conjunctivae/corneas clear. PERRL, EOM's intact. Fundi benign Back: No CVA pain bilaterally Lungs: regular respirations, non labored breathing. Abdomen: soft, non-tender. No masses, no organomegaly Pelvic: Lam catheter in place draining clear yellow urine. Device in good working order. ASSESSMENT/PLAN Assessment/Plan Continue BID flomax. So far, patient not dizzy or hypotensive. Continue finasteride 5 mg, continue as outpatient. Urinary retention: voiding trial in a few days after creatinine has stabilized. Creatinine has improved since Lam insertion. (Down to 1.8 from 2.2) Nursing to use use leg straps to secure Lam please. Statlock is too tight for patient, given his anatomy. COMMENT Lab Laboratory Tests Test 09/14/18 11:42 09/14/18 16:21 09/14/18 20:20 09/15/18 05:27 Glucose (Fingerstick) 287 mg/dL (70-99) 156 mg/dL (70-99) 214 mg/dL (70-99) White Blood Count 5.9 x10^3/uL (4.0-11.0) Red Blood Count 3.62 x10^6/uL (4.30-5.70) Hemoglobin 8.2 g/dL (13.0-17.5) Hematocrit 27.2 % (39.0-53.0) Mean Corpuscular Volume 75 fL (79-100) Mean Corpuscular Hemoglobin 23 pg (25-35) Mean Corpuscular Hemoglobin Concent 30 g/dL (31-37) Red Cell Distribution Width 14.5 % (11.5-14.5) Platelet Count 192 x10^3/uL (140-400) Neutrophils (%) (Auto) 49 % (31-73) Lymphocytes (%) (Auto) 32 % (24-48) Monocytes (%) (Auto) 15 % (0-9) Eosinophils (%) (Auto) 4 % (0-3) Basophils (%) (Auto) 1 % (0-3) Neutrophils # (Auto) 2.9 x10^3uL (1.8-7.7) Lymphocytes # (Auto) 1.9 x10^3/uL (1.0-4.8) Monocytes # (Auto) 0.9 x10^3/uL (0.0-1.1) Eosinophils # (Auto) 0.2 x10^3/uL (0.0-0.7) Basophils # (Auto) 0.0 x10^3/uL (0.0-0.2) Sodium Level 140 mmol/L (136-145) Potassium Level 4.7 mmol/L (3.5-5.1) Chloride Level 106 mmol/L (98-107) Carbon Dioxide Level 23 mmol/L (21-32) Anion Gap 11 (6-14) Blood Urea Nitrogen 21 mg/dL (8-26) Creatinine 1.8 mg/dL (0.7-1.3) Estimated GFR (Cockcroft-Gault) 43.2 Glucose Level 258 mg/dL (70-99) Calcium Level 9.2 mg/dL (8.5-10.1) Prostate Specific Antigen 35.54 ng/mL (0.00-4.00) Test 09/15/18 07:46 Glucose (Fingerstick) 226 mg/dL (70-99) HERMES WHITE MD 09/15/18 1505: ASSESSMENT/PLAN Assessment/Plan Agree with assessment and plan. BETH DEAN APRN Sep 15, 2018 09:50 HERMES WHITE MD Sep 15, 2018 15:05
[2018-09-15 11:00] VITALS: BP 155/68
--- NOTE | 2018-09-15 13:54 | PDOC ---
SUBJECTIVE ROS No complaints, sitting up in chair OBJECTIVE Vital Signs Vital Signs Date Time Temp Pulse Resp B/P (MAP) Pulse Ox O2 Delivery O2 Flow Rate FiO2 09/15/18 11:48 91 Room Air 09/15/18 09:34 89 128/70 09/15/18 07:00 98.5 17 98.5 I & 0 Intake and Output 09/15/18 07:00 Intake Total 3536 ml Output Total 1500 ml Balance 2036 ml Intake Oral 750 ml IV Total 2786 ml Output Urine Total 1500 ml # Voids 1 # Bowel Movements 3 PHYSICAL EXAM Physical Exam GEN: NAD HEEN: Om moist NECK: supple CVS: RRR RESP: CTA, Non labored GI: NT : No Lam DIAGNOSIS/ASSESSMENT Assessment & Plan MARVIN- Peaked at 2.7 down to 1.8 this am Suspect Dehydration, Urinary retention, bactrim use E-Lytes and acid base stable Lisinopril held Hyperkalemia- Mild Resolved , was on bactrim and REHAN-I CKD STAGE 3 - Baseline Cr 1.6 Urinary retention Urology Following, On Flomax DM II HTN COMMENT/RELEVANT DATA Meds Current Medications Medications (Trade) Dose Ordered Sig/Fabrice Start Time Stop Time Status Last Admin Dose Admin Acetaminophen (Tylenol) 650 mg PRN Q6HRS PRN 09/12/18 23:45 Albuterol Sulfate (Ventolin Neb Soln) 2.5 mg RTQID 09/13/18 08:00 09/15/18 11:47 2.5 MG Amoxicillin/ Clavulanate Potassium (Augmentin 500/ 125mg) 1 tab BID 09/13/18 09:00 09/13/18 09:00 DC Artificial Tears (Artificial Tears) 1 drop QID 09/13/18 09:00 09/15/18 12:31 1 DROP Aspirin (Ecotrin) 81 mg DAILY 09/13/18 09:00 09/15/18 09:33 81 MG Atorvastatin Calcium (Lipitor) 10 mg HS 09/13/18 21:00 09/14/18 21:01 10 MG Calcium Gluconate (Calcium Gluconate) 1,000 mg 1X ONCE 09/12/18 17:30 09/12/18 17:31 DC 09/12/18 17:48 1,000 MG Ceftriaxone Sodium (Rocephin) 1 gm DAILY 09/12/18 18:30 09/15/18 09:34 1 GM Citalopram Hydrobromide (CeleXA) 20 mg DAILY 09/13/18 09:00 09/15/18 09:33 20 MG Dextrose (Dextrose 50%-Water Syringe) 25 gm STK-MED ONCE 09/13/18 08:00 09/15/18 12:24 DC Dextrose/Sodium Chloride 1,000 ml @ 75 mls/hr [id number] 09/13/18 10:30 09/15/18 09:44 DC 09/15/18 04:05 75 MLS/HR Famotidine (Pepcid) 20 mg DAILY 09/13/18 09:00 09/15/18 09:34 20 MG Finasteride (Proscar) 5 mg DAILY 09/14/18 13:00 09/15/18 09:32 5 MG Fluticasone Propionate (Flonase) 2 spray BID 09/13/18 10:00 09/15/18 09:35 2 SPRAY Furosemide (Lasix) 20 mg DAILY 09/13/18 09:00 09/13/18 11:36 DC 09/13/18 09:56 20 MG Gabapentin (Neurontin) 300 mg DAILY 09/13/18 09:00 09/15/18 09:32 300 MG Heparin Sodium (Porcine) (Heparin Sodium) 5,000 unit Q12HR 09/13/18 21:00 09/15/18 09:37 5,000 UNIT Insulin Glargine (Lantus) 10 units QHS 09/15/18 21:00 Insulin Human Lispro (HumaLOG) 0-5 UNITS TIDWMEALS 09/14/18 12:00 09/15/18 12:34 4 UNITS Insulin Human Regular (HumuLIN R VIAL) 10 unit 1X ONCE 09/12/18 17:30 09/12/18 17:31 DC 09/12/18 17:50 10 UNIT Isosorbide Mononitrate (Imdur) 60 mg DAILY 09/13/18 09:00 09/15/18 09:33 60 MG Lactobacillus Rhamnosus (Culturelle) 1 cap BID 09/13/18 09:00 09/15/18 09:34 1 CAP Levetiracetam (Keppra) 250 mg BID 09/13/18 09:00 09/15/18 09:34 250 MG Lisinopril (Prinivil) 5 mg DAILY 09/13/18 09:00 09/13/18 11:36 DC 09/13/18 09:57 5 MG Memantine (Namenda) 5 mg BID 09/13/18 09:00 09/15/18 09:34 5 MG Metoprolol Succinate (Toprol Xl) 25 mg DAILY 09/13/18 09:00 09/15/18 09:34 25 MG Montelukast Sodium (Singulair) 10 mg QHS 09/13/18 21:00 09/14/18 21:01 10 MG Multivitamins (Thera M Plus) 1 tab DAILY 09/13/18 09:00 09/15/18 09:32 1 TAB Non-Formulary Medication (Mv-Mn/Fa/Coq10/ Lycopene/Lutein (Theragran-M Premier 50+ Caplet)) 1 each DAILY 09/13/18 09:00 UNV Ondansetron HCl (Zofran) 4 mg PRN Q8HRS PRN 09/12/18 18:00 09/13/18 17:59 DC Polyethylene Glycol (miraLAX PACKET) 17 gm DAILY 09/13/18 09:00 09/14/18 09:12 17 GM Potassium Chloride (Klor-Con) 8 meq BID 09/13/18 09:00 UNV Tamsulosin HCl (Flomax) 0.4 mg BID 09/14/18 21:00 09/15/18 09:32 0.4 MG Tramadol HCl (Ultram) 50 mg PRN QID PRN 09/12/18 23:45 09/13/18 00:40 DC Vitamin B Complex (Johnny B) 1 tab DAILY 09/13/18 09:00 09/15/18 09:33 1 TAB Vitamin D (Vitamin D3) 500 unit DAILY 09/13/18 09:00 09/15/18 09:32 500 UNIT Lab Laboratory Tests Test 09/14/18 16:21 09/14/18 20:20 09/15/18 05:27 09/15/18 07:46 Glucose (Fingerstick) 156 mg/dL (70-99) 214 mg/dL (70-99) 226 mg/dL (70-99) White Blood Count 5.9 x10^3/uL (4.0-11.0) Red Blood Count 3.62 x10^6/uL (4.30-5.70) Hemoglobin 8.2 g/dL (13.0-17.5) Hematocrit 27.2 % (39.0-53.0) Mean Corpuscular Volume 75 fL (79-100) Mean Corpuscular Hemoglobin 23 pg (25-35) Mean Corpuscular Hemoglobin Concent 30 g/dL (31-37) Red Cell Distribution Width 14.5 % (11.5-14.5) Platelet Count 192 x10^3/uL (140-400) Neutrophils (%) (Auto) 49 % (31-73) Lymphocytes (%) (Auto) 32 % (24-48) Monocytes (%) (Auto) 15 % (0-9) Eosinophils (%) (Auto) 4 % (0-3) Basophils (%) (Auto) 1 % (0-3) Neutrophils # (Auto) 2.9 x10^3uL (1.8-7.7) Lymphocytes # (Auto) 1.9 x10^3/uL (1.0-4.8) Monocytes # (Auto) 0.9 x10^3/uL (0.0-1.1) Eosinophils # (Auto) 0.2 x10^3/uL (0.0-0.7) Basophils # (Auto) 0.0 x10^3/uL (0.0-0.2) Sodium Level 140 mmol/L (136-145) Potassium Level 4.7 mmol/L (3.5-5.1) Chloride Level 106 mmol/L (98-107) Carbon Dioxide Level 23 mmol/L (21-32) Anion Gap 11 (6-14) Blood Urea Nitrogen 21 mg/dL (8-26) Creatinine 1.8 mg/dL (0.7-1.3) Estimated GFR (Cockcroft-Gault) 43.2 Glucose Level 258 mg/dL (70-99) Calcium Level 9.2 mg/dL (8.5-10.1) Prostate Specific Antigen 35.54 ng/mL (0.00-4.00) Test 09/15/18 12:25 Glucose (Fingerstick) 289 mg/dL (70-99) Results All relevant outside records, renal labs, imaging studies, telemetry/EKG's were reviewed. Other Renal US= The right kidney measures 10.8 cm in length while the left kidney measures 9.6 cm. A 2.2 cm cyst is evident in the right kidney. The lower pole of the left kidney was poorly defined due to overlying bowel. There is mild bilateral renal cortical scarring. There is no evidence of hydronephrosis. The urinary bladder is collapsed and poorly defined due to the presence of a Lam catheter. IMPRESSION: 1. Small right renal cyst. 2. No evidence of renal obstruction. NADEEM CERDA MD Sep 15, 2018 13:53
--- NOTE | 2018-09-15 14:08 | EKG ---
[facility] [address] [place] [address] Test Date: 2018-09-12 Test Time: 15:57:35 Pat Name: ANDREZ HUMPHREY Department: Room: [facility] Gender: Spot Billing Clerk: : [id number] Requested By: SHANIA TYLER Order Number: [id number] Reading MD: Gaston Narayanan Measurements Intervals [place] Rate: P: MN: QRS: QRSD: T: QT: QTc: Interpretive Statements Compared to ECG 08/13/2018 13:09:39 No significant changes Electronically Signed On 09-17-2018 8:45:45 WAX BLENDER by Gaston Narayanan
[2018-09-15 15:00] VITALS: BP 153/62
--- NOTE | 2018-09-15 15:30 | NUR ---
SW following pt. PT/OT recommends SNU. Discussed with pt's daughter, Mandy, phone: [phone] about SNU options. Pt has been at last month and Mandy agreeable with [facility]. SW phoned and faxed referral to [facility]. Pt admission and acceptance pending. Pt's daughter is aware insurance will have to approve SNU before dc. SW will continue to follow pt. ZABRINA RN and Physician.
[2018-09-15 19:50] VITALS: BP 139/70
[2018-09-15] MEDS ORDERED: INSULIN GLARGINE 300 UNITS/3 ML INSULN.PEN. SQ SCH (21:00)
[2018-09-15] MEDS: MONTELUKAST SODIUM 10 MG TABLET. PO SCH (21:01)
[2018-09-15] MEDS: ATORVASTATIN CALCIUM 10 MG TABLET. PO SCH (21:01)
[2018-09-15 22:55] VITALS: BP 140/92
[2018-09-16 03:40] VITALS: BP 159/77
[2018-09-16 07:15] VITALS: BP 149/64
[2018-09-16] MEDS: ALBUTEROL SULFATE 2.5 MG/3 ML NEBU. NEB SCH ×2 (07:52→11:41)
[2018-09-16] MEDS: INSULIN LISPRO 300 UNITS/3 ML INSULN.PEN. SQ SCH ×2 (08:00→13:32)
[2018-09-16] MEDS: cefTRIAXone IV Push 1 GM VIAL. IVP SCH (09:00)
[2018-09-16] MEDS: HEPARIN for SUB-Q USE 5,000 UNIT/ML VIAL. SQ SCH (09:00)
--- NOTE | 2018-09-16 09:18 | PDOC ---
BETH DEAN WIND COMMISSIONING TECHNICIAN 09/16/18 0918: SUBJECTIVE Subjective Pt sleeping, appears comfortable. Per PCP, patient is going back to senior care today. PCP concerned that he has had high PSAs as an outpatient (between 25-35 as an outpatient) OBJECTIVE Objective Physical Exam: General appearance: Alert and Oriented Head: Normocephalic, without obvious abnormality Eyes: conjunctivae/corneas clear. PERRL, EOM's intact. Fundi benign Lungs: Regular respirations, non labored breathing. Abdomen: soft, non-tender.No masses, no organomegaly Pelvic: + Flores catheter in place draining clear yellow urine. Device in good working order. Vital Signs Vital Signs Date Time Temp Pulse Resp B/P (MAP) Pulse Ox O2 Delivery O2 Flow Rate FiO2 09/16/18 07:15 98.3 70 18 149/64 (92) 96 Room Air 98.3 09/16/18 03:40 98.4 73 18 159/77 (104) 96 Room Air 98.4 09/15/18 22:55 98.7 82 20 140/92 (108) 95 Room Air 98.7 09/15/18 19:50 99.6 70 20 139/70 (93) 94 Room Air 99.6 09/15/18 19:46 96 Room Air 09/15/18 19:10 Room Air 09/15/18 15:55 95 Room Air 09/15/18 15:00 98.0 82 18 153/62 (92) 95 Room Air 98.0 09/15/18 11:48 91 Room Air 09/15/18 11:00 98.9 82 20 155/68 (97) 100 Room Air 98.9 09/15/18 09:34 89 128/70 09/15/18 09:33 89 128/70 I & O Intake and Output 09/16/18 06:59 Intake Total 770 ml Output Total 1750 ml Balance -980 ml Intake Oral 770 ml Output Urine Total 1750 ml PHYSICAL EXAM Physical Exam Physical Exam: General appearance: Alert and Oriented Head: Normocephalic, without obvious abnormality Eyes: conjunctivae/corneas clear. PERRL, EOM's intact. Fundi benign Lungs: Regular respirations, non labored breathing. Abdomen: soft, non-tender.No masses, no organomegaly Pelvic: + Flores catheter in place draining clear yellow urine. Device in good working order. ASSESSMENT/PLAN Assessment/Plan Ok for patient to discharge from Urology perspective. A follow up appointment has been arranged for him on 09/25/18 at 11 10 am. Appointment card put in chart At that time we will conduct voiding trial and discuss elevated PSA. Nursing to teach flores care and provide additional catheter supplies as requested prior to discharge. Continue Finasteride 1 tab daily and BID Flomax as an outpatient. RX written for Flomax 0.4 BID, total 60 with two refills, and also Finasteride 5 m tab daily with no refills. Given to attending RN. Will sign off at this time, but please call with questions or changes in patient condition. Problems: (1) Urinary retention COMMENT Lab Laboratory Tests Test 09/15/18 12:25 09/15/18 16:14 09/15/18 20:59 09/16/18 07:39 Glucose (Fingerstick) 289 mg/dL (70-99) 210 mg/dL (70-99) 134 mg/dL (70-99) 97 mg/dL (70-99) HERMES WHITE MD 09/16/18 1003: ASSESSMENT/PLAN Assessment/Plan Agree with assessment and plan. PSA screening not recommend after age 70, not of any real usefulness in this patient with his age and health. Can discuss further at outpatient followup. BETH DEAN APRN Sep 16, 2018 09:18 HERMES WHITE MD Sep 16, 2018 10:03
--- NOTE | 2018-09-16 09:31 | PDOC ---
PROGRESS NOTES Subjective Subjective no new problems Objective Objective Vital Signs Date Time Temp Pulse Resp B/P (MAP) Pulse Ox O2 Delivery O2 Flow Rate FiO2 09/16/18 07:54 94 Room Air 09/16/18 07:15 98.3 70 18 149/64 (92) 98.3 Intake and Output 09/16/18 07:00 Intake Total 770 ml Output Total 1750 ml Balance -980 ml Intake Oral 770 ml Output Urine Total 1750 ml Physical Exam Abdomen: Normal bowel sounds, Soft Heart: Regular rate, Normal S1, Normal S2 Extremities: No clubbing General: Alert, Cooperative, No acute distress HEENT: Atraumatic, PERRLA, EOMI, Mucous membr. moist/pink Lungs: Clear to auscultation MUSCULOSKELETAL: No deformity, No swelling Neuro: Other (CONFUSED) Psych/Mental Status: Other (FLAT AFFECT) Skin: No breakdown COMMENT Flores present Diagnosis Problem List Problems Medical Problems: (1) Hyperkalemia Status: Acute (2) Urinary retention Status: Acute (3) Urinary tract infection Status: Acute Assessment Assessment IMPRESSION: 1. Acute urinary tract infection. on Rocephin 2. Acute renal failure with chronic kidney disease. 3. Acute urinary retention. 4. Hypertension. 5. Diabetes mellitus 2 with hypoglycemia. 6. Dementia. 7. Asthma. 8. History of congestive heart failure. 9. Diabetes mellitus, dependent on insulin. 10. Hyperlipidemia. 11. Glaucoma. 12. Benign prostatic hypertrophy. 13. Urinary retention. The patient had 1500 mL of urinary retention on admission. PLAN: We will continue po Vantin for now for 10 days. The patient encephalopathy improved to base line sono kidneys cyst 2 cm cr 1.8 to base line, d/c iv fluids Urinary retention- continue Flores catheter and Flomax. psa 35 went up.24 last month spoke with urology , they are going to see in office to remove flores Plan Plan of Care Problems Medical Problems: (1) Hyperkalemia Status: Acute (2) Urinary retention Status: Acute (3) Urinary tract infection Status: Acute Comment Review of Relevant I have reviewed the following items emily (where applicable) has been applied. Labs Laboratory Tests Test 09/15/18 12:25 09/15/18 16:14 09/15/18 20:59 09/16/18 07:39 Glucose (Fingerstick) 289 mg/dL (70-99) 210 mg/dL (70-99) 134 mg/dL (70-99) 97 mg/dL (70-99) Medications Current Medications Insulin Glargine (Lantus) 10 units QHS SQ Last administered on 09/15/18at 21:03 ; Start 09/15/18 at 21:00 Vitals/I & O Vital Sign - Last 24 Hours 09/15/18 09/15/18 09/15/18 09/15/18 09:33 09:34 11:00 11:48 Temp 98.9 98.9 Pulse 89 89 82 Resp 20 B/P (MAP) 128/70 128/70 155/68 (97) Pulse Ox 100 91 O2 Delivery Room Air Room Air 09/15/18 09/15/18 09/15/18 09/15/18 15:00 15:55 19:10 19:46 Temp 98.0 98.0 Pulse 82 Resp 18 B/P (MAP) 153/62 (92) Pulse Ox 95 95 96 O2 Delivery Room Air Room Air Room Air Room Air 09/15/18 09/15/18 09/16/18 09/16/18 19:50 22:55 03:40 07:15 Temp 99.6 98.7 98.4 98.3 99.6 98.7 98.4 98.3 Pulse 70 82 73 70 Resp 20 20 18 18 B/P (MAP) 139/70 (93) 140/92 (108) 159/77 (104) 149/64 (92) Pulse Ox 94 95 96 96 O2 Delivery Room Air Room Air Room Air Room Air 09/16/18 07:54 Pulse Ox 94 O2 Delivery Room Air Intake and Output 09/15/18 09/15/18 09/16/18 15:00 23:00 07:00 Intake Total 220 ml 200 ml 350 ml Output Total 850 ml 900 ml Balance -630 ml 200 ml -550 ml GEOFFREY HART MD Sep 16, 2018 09:31
[2018-09-16] MEDS ORDERED: GABA300C18 PO (09:37)
[2018-09-16] MEDS ORDERED: FINA5TAB4 PO (09:37)
[2018-09-16] MEDS ORDERED: INSU100I11 SQ (09:37)
[2018-09-16] MEDS ORDERED: TAMS0.4C97 PO (09:37)
[2018-09-16] MEDS ORDERED: CEFP200T PO (09:37)
[2018-09-16] MEDS: LACTOBACILLUS RHAMNOSUS GG 1 CAPSULE. PO SCH (10:58)
[2018-09-16] MEDS: FINASTERIDE 5 MG TABLET. PO SCH (10:59)
[2018-09-16] MEDS: CHOLECALCIFEROL (VITAMIN D3) 1,000 UNIT TABLET PO SCH (10:59)
[2018-09-16] MEDS: ISOSORBIDE MONONITRATE ER 30 MG TAB.ER.24H PO SCH (10:59)
[2018-09-16] MEDS: MEMANTINE 5 MG TABLET. PO SCH (11:00)
[2018-09-16] MEDS: FAMOTIDINE 20 MG TABLET. PO SCH (11:00)
[2018-09-16] MEDS: TAMSULOSIN 0.4 MG CAP.ER.24H. PO SCH (11:00)
[2018-09-16] MEDS: VITAMIN B COMPLEX TABLET. PO SCH (11:00)
[2018-09-16] MEDS: ASPIRIN ENTERIC COATED 81 MG TABLET.DR. PO SCH (11:00)
[2018-09-16] MEDS: MULTIVITAMIN with MINERAL TABLET. PO SCH (11:01)
[2018-09-16] MEDS: levETIRAcetam 250 MG TABLET PO SCH (11:01)
[2018-09-16] MEDS: GABAPENTIN 300 MG CAPSULE. PO SCH (11:01)
[2018-09-16] MEDS: METOPROLOL SUCC 24HR ER 25 MG TAB.ER.24H. PO SCH (11:01)
[2018-09-16] MEDS: POLYETHYLENE GLYCOL 3350 17 GM PACKET. PO SCH (11:01)
[2018-09-16] MEDS: CITALOPRAM 20 MG TABLET. PO SCH (11:01)
[2018-09-16] MEDS: POLYVINYL ALCOHOL 1.4% OPHTH SOLUTION 15ML BOTTLE. OU SCH ×2 (11:02→13:29)
[2018-09-16] MEDS: FLUTICASONE 50MCG/NASAL SPRAY 16GM BOTTLE. NS SCH (11:02)
[2018-09-16 11:40] VITALS: BP 142/63
--- NOTE | 2018-09-16 11:55 | PDOC ---
SUBJECTIVE ROS no new concerns OBJECTIVE Vital Signs Vital Signs Date Time Temp Pulse Resp B/P (MAP) Pulse Ox O2 Delivery O2 Flow Rate FiO2 09/16/18 11:40 98.3 71 18 142/63 (89) 96 Room Air 98.3 I & 0 Intake and Output 09/16/18 06:59 Intake Total 770 ml Output Total 1750 ml Balance -980 ml Intake Oral 770 ml Output Urine Total 1750 ml PHYSICAL EXAM Physical Exam GEN: NAD HEEN: Om moist NECK: supple CVS: RRR RESP: CTA, Non labored GI: NT : No Lam DIAGNOSIS/ASSESSMENT Assessment & Plan MARVIN- Peaked at 2.7 down to 1.8 Suspect Dehydration, Urinary retention, bactrim use No labs today Lisinopril held Hyperkalemia- Mild Resolved , was on bactrim and REHAN-I CKD STAGE 3 - Baseline Cr 1.6 Urinary retention Urology Following, On Flomax DM II HTN COMMENT/RELEVANT DATA Meds Current Medications Medications (Trade) Dose Ordered Sig/Fabrice Start Time Stop Time Status Last Admin Dose Admin Acetaminophen (Tylenol) 650 mg PRN Q6HRS PRN 09/12/18 23:45 Albuterol Sulfate (Ventolin Neb Soln) 2.5 mg RTQID 09/13/18 08:00 09/16/18 11:41 2.5 MG Amoxicillin/ Clavulanate Potassium (Augmentin 500/ 125mg) 1 tab BID 09/13/18 09:00 09/13/18 09:00 DC Artificial Tears (Artificial Tears) 1 drop QID 09/13/18 09:00 09/16/18 11:02 1 DROP Aspirin (Ecotrin) 81 mg DAILY 09/13/18 09:00 09/16/18 11:00 81 MG Atorvastatin Calcium (Lipitor) 10 mg HS 09/13/18 21:00 09/15/18 21:01 10 MG Calcium Gluconate (Calcium Gluconate) 1,000 mg 1X ONCE 09/12/18 17:30 09/12/18 17:31 DC 09/12/18 17:48 1,000 MG Ceftriaxone Sodium (Rocephin) 1 gm DAILY 09/12/18 18:30 09/15/18 09:34 1 GM Citalopram Hydrobromide (CeleXA) 20 mg DAILY 09/13/18 09:00 09/16/18 11:01 20 MG Dextrose (Dextrose 50%-Water Syringe) 25 gm STK-MED ONCE 09/13/18 08:00 09/15/18 12:24 DC Dextrose/Sodium Chloride 1,000 ml @ 75 mls/hr [id number] 09/13/18 10:30 09/15/18 09:44 DC 09/15/18 04:05 75 MLS/HR Famotidine (Pepcid) 20 mg DAILY 09/13/18 09:00 09/16/18 11:00 20 MG Finasteride (Proscar) 5 mg DAILY 09/14/18 13:00 09/16/18 10:59 5 MG Fluticasone Propionate (Flonase) 2 spray BID 09/13/18 10:00 09/16/18 11:02 2 SPRAY Furosemide (Lasix) 20 mg DAILY 09/13/18 09:00 09/13/18 11:36 DC 09/13/18 09:56 20 MG Gabapentin (Neurontin) 300 mg DAILY 09/13/18 09:00 09/16/18 11:01 300 MG Heparin Sodium (Porcine) (Heparin Sodium) 5,000 unit Q12HR 09/13/18 21:00 09/15/18 21:04 5,000 UNIT Insulin Glargine (Lantus) 10 units QHS 09/15/18 21:00 09/15/18 21:03 10 UNITS Insulin Human Lispro (HumaLOG) 0-5 UNITS TIDWMEALS 09/14/18 12:00 09/15/18 17:16 3 UNITS Insulin Human Regular (HumuLIN R VIAL) 10 unit 1X ONCE 09/12/18 17:30 09/12/18 17:31 DC 09/12/18 17:50 10 UNIT Isosorbide Mononitrate (Imdur) 60 mg DAILY 09/13/18 09:00 09/16/18 10:59 60 MG Lactobacillus Rhamnosus (Culturelle) 1 cap BID 09/13/18 09:00 09/16/18 10:58 1 CAP Levetiracetam (Keppra) 250 mg BID 09/13/18 09:00 09/16/18 11:01 250 MG Lisinopril (Prinivil) 5 mg DAILY 09/13/18 09:00 09/13/18 11:36 DC 09/13/18 09:57 5 MG Memantine (Namenda) 5 mg BID 09/13/18 09:00 09/16/18 11:00 5 MG Metoprolol Succinate (Toprol Xl) 25 mg DAILY 09/13/18 09:00 09/16/18 11:01 25 MG Montelukast Sodium (Singulair) 10 mg QHS 09/13/18 21:00 09/15/18 21:01 10 MG Multivitamins (Thera M Plus) 1 tab DAILY 09/13/18 09:00 09/16/18 11:01 1 TAB Non-Formulary Medication (Mv-Mn/Fa/Coq10/ Lycopene/Lutein (Theragran-M Premier 50+ Caplet)) 1 each DAILY 09/13/18 09:00 UNV Ondansetron HCl (Zofran) 4 mg PRN Q8HRS PRN 09/12/18 18:00 09/13/18 17:59 DC Polyethylene Glycol (miraLAX PACKET) 17 gm DAILY 09/13/18 09:00 09/16/18 11:01 17 GM Potassium Chloride (Klor-Con) 8 meq BID 09/13/18 09:00 UNV Tamsulosin HCl (Flomax) 0.4 mg BID 09/14/18 21:00 09/16/18 11:00 0.4 MG Tramadol HCl (Ultram) 50 mg PRN QID PRN 09/12/18 23:45 09/13/18 00:40 DC Vitamin B Complex (Johnny B) 1 tab DAILY 09/13/18 09:00 09/16/18 11:00 1 TAB Vitamin D (Vitamin D3) 500 unit DAILY 09/13/18 09:00 09/16/18 10:59 500 UNIT Lab Laboratory Tests Test 09/15/18 12:25 09/15/18 16:14 09/15/18 20:59 09/16/18 07:39 Glucose (Fingerstick) 289 mg/dL (70-99) 210 mg/dL (70-99) 134 mg/dL (70-99) 97 mg/dL (70-99) Results All relevant outside records, renal labs, imaging studies, telemetry/EKG's were reviewed. NADEEM CERDA MD Sep 16, 2018 11:55
--- NOTE | 2018-09-16 12:37 | DISCH ---
DISCHARGE DISCHARGE INFORMATION: DISCHARGE DATE: Sep 16, 2018 FINAL DIAGNOSIS Problems Medical Problems: (1) Hyperkalemia Status: Acute (2) Urinary retention Status: Acute (3) Urinary tract infection Status: Acute CONDITION ON DISCHARGE: Stable CODE STATUS: Code Status: Full PRISON: SNF STAY <30 DAYS: Yes POST DISCHARGE ORDERS: ACTIVITY ORDERS: Activity as tolerated WEIGHT BEARING STATUS: No restrictions DIET AFTER DISCHARGE: ADA WOUND/INCISION CARE: Ice to area for comfort, Keep wound/cast CDI, Keep wound elevated, Change dressing, Reinforce dressing PRN OTHER ORDERS: keep flores for 1 week CHECKS AFTER DISCHARGE: CHECKS AFTER DISCHARGE: Check blood press - daily, Check blood sugar, ac/hs, Weigh Yourself Daily FOLLOW-UP: LAB ORDERS FOR FOLLOW-UP: cbc,bmp weekly for 4 weeks ,fax to [phone] TREATMENT/EQUIPMENT ORDERS: ADAPTIVE EQUIPMENT NEEDED: None, Front wheeled walker Physical Therapy For: Evalulation/Treatment Occupational Therapy For: Evaluation/Treatment DISCHARGE MEDICATIONS: Home Meds Active Scripts Cefpodoxime Proxetil (CEFPODOXIME PROXETIL) 200 Mg Tablet, 1 TAB PO BID for uti , #20 TAB Prov:GEOFFREY HART MD 09/16/18 Insulin Lispro (HUMALOG) 100 Unit/1 Ml Insuln.pen, 1-10 UNITS SQ TIDWMEALS for diabetes for 30 Days, EACH Prov:GEOFFREY HART MD 09/16/18 Finasteride (FINASTERIDE) 5 Mg Tablet, 5 MG PO DAILY for bph for 30 Days, #30 TAB Prov:GEOFFREY HART MD 09/16/18 Gabapentin (GABAPENTIN) 300 Mg Capsule, 300 MG PO DAILY for pain for 30 Days, # 30 CAP Prov:GEOFFREY HART MD 09/16/18 Tamsulosin Hcl (FLOMAX) 0.4 Mg Cap.er.24h, 0.4 MG PO BID for bph for 30 Days, # 60 CAP.SR Prov:GEOFFREY HART MD 09/16/18 Insulin Glargine,Hum.rec.anlog (LANTUS SOLOSTAR) 100 Unit/1 Ml Insuln.pen, 10 UNIT SQ QHS for diabetes, #15 ML 3 Refills Prov:GEOFFREY HART MD 08/18/18 Reported Medications Carboxymethylcellulos/Glycerin (REFRESH OPTIVE EYE DROPS) 15 Ml Drops, 1 DROP EACHEYE BID for dry eye, #15 ML 3 Refills 08/13/18 Ranitidine Hcl (RANITIDINE HCL) 150 Mg Tablet, 150 MG PO BID for acid reflux, TAB 08/13/18 Memantine Hcl (NAMENDA) 10 Mg Tablet, 5 MG PO BID for behavior/, TAB 08/13/18 Cholecalciferol (Vitamin D3) (VITAMIN D3) 1,000 Unit Tablet, 500 UNIT PO DAILY for vitamin supplement, TAB 08/13/18 Vitamin B Complex (VITAMIN B COMPLEX) 1 Each Capsule, 1 EACH PO DAILY for vitamin supplement, CAP 08/13/18 Mv-Mn/Fa/Coq10/Lycopene/Lutein (THERAGRAN-M PREMIER 50+ CAPLET) 1 Each Tablet, 1 EACH PO DAILY for vitamin supplement, TAB 08/13/18 Multivit, Iron, Min No. 8, Fa (GNP THERAPEUTIC-M CAPLET) 1 Each Tablet, 1 EACH PO DAILY for vitamin supplement, TAB 08/13/18 Escitalopram Oxalate (ESCITALOPRAM OXALATE) 10 Mg Tablet, 10 MG PO DAILY for ANTI-DEPRESSANT, #30 TAB 0 Refills 08/13/18 Atorvastatin Calcium (ATORVASTATIN CALCIUM) 10 Mg Tablet, 10 MG PO HS for FOR CHOLESTEROL, #30 TAB 0 Refills 08/13/18 Acetaminophen (TYLENOL) 325 Mg Tablet, 1 TAB PO PRN Q6HRS PRN for PAIN MDD 3 gram, #30 TAB 05/31/15 Metoprolol Succinate (METOPROLOL SUCCINATE ( XL )) 25 Mg Tab.er.24h, 50 MG PO DAILY for FOR HYPERTENSION, #30 TAB 0 Refills 03/28/15 Polyethylene Glycol 3350 (MIRALAX) 17 Gm Powd.pack, 1 PACKET PO DAILY, #30 PACKET 3 Refills 11/03/14 Albuterol Sulfate (ALBUTEROL SULFATE NEB SOLN) 2.5 Mg/3 Ml Vial.neb, 2.5 MG NEB QID for SHORTNESS OF BREATH, EACH 0 Refills 11/03/14 Montelukast Sodium (MONTELUKAST SODIUM TABLET) 10 Mg Tablet, 10 MG PO HS for FOR ASTHMA, #30 TAB 0 Refills 03/19/14 Levetiracetam (KEPPRA) 250 Mg Tablet, 250 MG PO BID, TAB 03/19/14 Aspirin (ASPIR 81) 81 Mg Tablet.dr, 1 TAB PO DAILY, #30 TAB 5 Refills 03/19/14 Isosorbide Mononitrate (IMDUR) 60 Mg Tab.er.24h, 60 MG PO DAILY for blood pressure 09/04/13 Fluticasone Propionate (FLONASE) 16 Gm [place].susp, 16 GM NS BID for nasal spray 09/04/13 Discontinued Reported Medications Furosemide (FUROSEMIDE) 20 Mg Tablet, 20 MG PO DAILY for diuretic, TAB 08/13/18 Tamsulosin Hcl (TAMSULOSIN HCL) 0.4 Mg Cap.er.24h, 1 CAP PO HS for bph, #30 CAP 5 Refills 05/31/15 Lisinopril (LISINOPRIL) 5 Mg Tablet, 5 MG PO DAILY for blood pressure 09/04/13 Potassium Chloride (POTASSIUM CHLORIDE) 8 Meq Tablet.er, 8 MEQ PO BID for potassium replacement 09/04/13 Gabapentin (GABAPENTIN ) 300 Mg Capsule, 300 MG PO BID for neuropathy 09/04/13 Discontinued Scripts Tramadol Hcl (TRAMADOL HCL) 50 Mg Tablet, 50 MG PO PRN QID PRN for MODERATE- SEVERE PAIN for 7 Days, TAB Prov:GEOFFREY HART MD 08/18/18 Amoxicillin/Potassium Clav (AMOX TR-K CLV 500-125 MG TAB) 1 Each Tablet, 1 TAB PO BID for uti for 7 Days, #14 TAB Prov:GEOFFREY HART MD 08/18/18 GEOFFREY HART MD Sep 16, 2018 12:37
--- NOTE | 2018-09-16 13:31 | NUR ---
[facility] following pt. Insurance has approved SNU. [facility] phoned and faxed orders to [facility]. Pt will transport vial [facility] transport at 1430. Packet on chart. Pt's daughter aware of plan and agreeable. RN notified.
--- NOTE | 2018-09-16 16:26 | PDOC ---
Provider Note Provider Note Discharge summary dictated. #[id number]. GEOFFREY HART MD Sep 16, 2018 16:26
--- NOTE | 2018-09-16 16:58 | DS ---
DATE OF DISCHARGE: 09/16/2018 REASON FOR ADMISSION TO THE HOSPITAL: Urinary tract infection, acute bladder retention, acute kidney failure. HISTORY OF PRESENT ILLNESS AND HOSPITAL COURSE: The patient is an 87-year-old male with history of BPH, had recurrent UTIs, chronic kidney disease stage 3, history of seizures, diabetes, diastolic heart failure, reflux, glaucoma. He had surgery for BPH as well as hydrocele. The patient was found to have a BUN of 36, creatinine 2.7. His potassium was high at 5.4. The patient was given insulin. His blood sugar went low. The patient was given IV fluids. His creatinine came down from 2.7 to 1.7, which is baseline. The patient was seen by Urology as well as Nephrology. The patient had an acute bladder retention with 1500 mL of bladder retention and a Lam catheter was placed, seen by Urology. PSA was elevated as an outpatient at 34, went up to 34 here and Urology recommended a Lam catheter to keep it for 1 week and also the patient was given Rocephin and changed to oral Vantin. The [facility] was [facility] to [facility] and keep Lam catheter, follow with Urology as an outpatient in 1 week for voiding trial and also PT, OT and Rehabilitation. FINAL DIAGNOSES: 1. Acute bladder retention. 2. Acute urinary tract infection. 3. Chronic benign prostatic hypertrophy. 4. Acute kidney insufficiency, [id number], chronic stage 3. Creatinine was 2.7, went down to 1.7. 5. Insulin-dependent diabetes. 6. Diastolic heart failure. 7. Hypertension. 8. Dementia. DISPOSITION: To prison. Keep Lam for 1 week with voiding trial in 1 week. Follow with Urology for elevated PSA. GEOFFREY HART MD DR: MELIDA/clement JOB#: [id number] / [id number]
== END 2018-09-16 14:40 | DRG 682 ==
LOC: ER 14:07 → 5 NORTH 17:19
PROVIDERS: ADMIT Internal Medicine; ATTEND Internal Medicine
DX: N17.9 Acute kidney failure, unspecified (principal); G93.41 Metabolic encephalopathy; N39.0 Urinary tract infection, site not specified; I13.0 Hypertensive heart and chronic kidney disease with heart failure and stage 1 through stage 4 chronic kidney disease, or unspecified chronic kidney disease; I50.32 Chronic diastolic (congestive) heart failure; E11.649 Type 2 diabetes mellitus with hypoglycemia without coma; E87.5 Hyperkalemia; N18.3 Chronic kidney disease, stage 3 (moderate); E78.5 Hyperlipidemia, unspecified; M84.4 Pathological fracture, not elsewhere classified; H40.9 Unspecified glaucoma; Z79.4 Long term (current) use of insulin; E78.00 Pure hypercholesterolemia, unspecified; E11.40 Type 2 diabetes mellitus with diabetic neuropathy, unspecified; E11.22 Type 2 diabetes mellitus with diabetic chronic kidney disease; F03.90 Unspecified dementia, unspecified severity, without behavioral disturbance, psychotic disturbance, mood disturbance, and anxiety; G40.909 Epilepsy, unspecified, not intractable, without status epilepticus; J45.909 Unspecified asthma, uncomplicated; K21.9 Gastro-esophageal reflux disease without esophagitis; N28.1 Cyst of kidney, acquired; N40.1 Benign prostatic hyperplasia with lower urinary tract symptoms; N43.3 Hydrocele, unspecified; R33.8 Other retention of urine; Z83.3 Family history of diabetes mellitus; Z86.011 Personal history of benign neoplasm of the brain; Z87.440 Personal history of urinary (tract) infections
CPT/HCPCS: 36415; 70450; 71045; 76770; 80048; 80053; 81001; 82962; 83605; 84484; 85025; 93005; 94640; 94644; 94760; 96374; 96375; G0103; J0610; J0696; J1644; J1815; J7042; J7613; 97110; 97116; 97530; 99285-25